=== PATIENT | female | born 1955 | race Caucasian/White ===

== ENCOUNTER 2024-04-11 08:17 | Outpatient (REF) | payer MEDICARE, OTHER, SELFPAY ==
--- NOTE | ~2024-04-11 | XR_ITS ---
EXAMINATION: XR BILATERAL KNEES CLINICAL INFORMATION: Bilateral knee pain. TECHNIQUE: 3 views of each knee. FINDINGS: RIGHT KNEE: Diffuse demineralization. Chondrocalcinosis lateral compartment. Advanced degenerative changes with narrowing and hypertrophic change in the medial and patellofemoral compartments. Joint effusion. LEFT KNEE: Diffuse demineralization. Severe narrowing of the medial compartment with medial marginal osteophytes. Chondrocalcinosis in the lateral compartment. Small joint effusion. Advanced degenerative changes with narrowing and hypertrophic change in the patellofemoral compartment. XR/XR knee LT 3V IMPRESSION: Advanced degenerative changes bilateral knees.
--- NOTE | ~2024-04-11 | XR_ITS ---
EXAMINATION: XR BILATERAL KNEES CLINICAL INFORMATION: Bilateral knee pain. TECHNIQUE: 3 views of each knee. FINDINGS: RIGHT KNEE: Diffuse demineralization. Chondrocalcinosis lateral compartment. Advanced degenerative changes with narrowing and hypertrophic change in the medial and patellofemoral compartments. Joint effusion. LEFT KNEE: Diffuse demineralization. Severe narrowing of the medial compartment with medial marginal osteophytes. Chondrocalcinosis in the lateral compartment. Small joint effusion. Advanced degenerative changes with narrowing and hypertrophic change in the patellofemoral compartment. XR/XR knee RT 3V IMPRESSION: Advanced degenerative changes bilateral knees.
== END 2024-04-11 08:18 | disposition home or self-care (01) ==
LOC: HO.HOSX 08:17
PROVIDERS: Visit Provider Orthopaedic Surgery
DX: M17.0 Bilateral primary osteoarthritis of knee (principal); M25.561 Pain in right knee; M25.562 Pain in left knee
CPT/HCPCS: 73562

== ENCOUNTER 2024-04-11 09:40 | Outpatient (AMB) | payer MEDICARE, OTHER, SELFPAY ==
--- NOTE | 2024-04-11 10:02 | A.OFFVIS_ITS ---
Vital Signs 04/11/24 10:03 Height 5 ft 5 in Weight 137 lb BMI 22.8 Intake Visit Reasons: Right shoulder pain, Bilateral knee pain Intake Note: Abby is a 68 year old female who presents with complaints of progressively worsening right shoulder pain and weakness as well as bilateral knee pains. The patient states that she injured her right shoulder several years ago while lifting a heavy object. She states that she had an MRI at that time which showed a tendon tear?. She states that she was scheduled to undergo right shoulder surgery at that time but changed her mind. She describes her knee pains as sharp in nature. She has had multiple cortisone injections in the past. The most recent injection gave her minimal relief. She has not had a viscosupplementation injection. She has failed the last 3 months of a home exercise program, oral and topical anti-inflammatory medicines as well as Tylenol. The patient states that her knee pains are now interfering with her activities of daily living and her ability to sleep well through the night. She wishes to hold off on total knee replacement surgery for as long as possible. She states that at this point her left knee pain is more severe than is her right. She reports difficulty lifting her right hand above shoulder height. Allergies gabapentin Allergy (Unknown, Verified 04/11/24 10:06) Unknown Clindamycin HCl Allergy (Unknown, Uncoded 04/11/24 10:06) Rash [facility] Surgical History (Updated 04/11/24 @ 10:07 by Jeannine Payne [facility]) Hx of lumbosacral spine surgery History of hip surgery History of shoulder surgery History of hernia repair History of eye surgery Physical Exam Vital Signs: BMI result Body Mass Index 22.8 Const Other: Well-nourished well-developed very friendly female awake alert and oriented x3 in no acute distress Extrem Other: Bilateral upper extremity examination shows good capillary refill, no skin lesions noted, normal sensation light touch Right shoulder examination shows decreased range of motion when compared to her left shoulder, 4/5 strength with supraspinatus testing, positive impingement signs, tenderness over her acromioclavicular joint, no instability Bilateral knee examination shows minimal effusions, palpable crepitus with range of motion, pain with range of motion, no instability Results Reviewed Results Reviewed: X-rays of the patient's bilateral knees show joint space narrowing, subchondral sclerosis, no acute bony abnormalities Assessment & Plan Assessment & Plan (1) Right shoulder pain: Code(s): M25.511 - Pain in right shoulder Category: Medical (2) Pain in both knees: Code(s): M25.561 - Pain in right knee; M25.562 - Pain in left knee (3) Osteoarthritis of left knee: Code(s): M17.12 - Unilateral primary osteoarthritis, left knee Category: Medical (4) Osteoarthritis of right knee: Code(s): M17.11 - Unilateral primary osteoarthritis, right knee Category: Medical Plan Ms. Bright presents with progressively worsening right shoulder pain and weakness most likely due to a full-thickness rotator cuff tear. Thus, I will send the patient for an MRI of her right shoulder for further evaluation. I will see her back once the MRI is completed to discuss the findings and treatment options. The patient also has bilateral knee pains due to osteoarthritis. She wishes to hold off on surgery for as long as possible. I agree with this plan. She has not gotten good relief from cortisone injections in the past. Thus, I will see whether or not the patient's insurance company will cover a viscosupplementation injection, such as Durolane, for both of her knees. I will see her back once t he injections are available. Feel free to call me at any time should questions regarding her orthopedic management arise. I spent 20 minutes in reviewing the patient's records and imaging studies, s eeing the patient and documenting in the medical record. Orders: Orders XR knee LT 3V 04/11/24 M25.562 - Pain in left knee MR shoulder RT wo con 04/11/24 M25.511 - Pain in right shoulder XR knee RT 3V 04/11/24 M25.561 - Pain in right knee Coding Level of Care Code Est Pt Level 3 (97557) Diagnoses Right shoulder pain M25.511 Pain in both knees M25.561; M25.562 Osteoarthritis of left knee M17.12 Osteoarthritis of right knee M17.11
[2024-04-11 10:03] VITALS: BMI 22.8
== END 2024-04-11 10:27 | disposition home or self-care (01) ==
PROVIDERS: PCP Internal Medicine; Visit Provider Orthopaedic Surgery
DX: M25.511 Pain in right shoulder (principal); M25.561 Pain in right knee; M25.562 Pain in left knee; M17.0 Bilateral primary osteoarthritis of knee
CPT/HCPCS: 99213

== ENCOUNTER 2024-05-17 11:15 | Outpatient (AMB) | payer MEDICARE, OTHER, MEDICAID, SELFPAY ==
--- NOTE | 2024-05-17 11:28 | MHC.OFFVIS ---
Intake Visit Reasons: Bilateral knee pain Intake Note: Abby is a 69 year old female who presents with complaints of progressively worsening bilateral knee pains. The patient describes her pains as sharp in nature. Her pains have gotten worse over the last few years in spite of continued non operative treatments. She has tried Tylenol and anti-inflammatory medicines which gave her minimal relief. She has had cortisone injections in the past which gave her temporary relief. She wishes to hold off on surgery for as long as possible. Allergies gabapentin Allergy (Unknown, Verified 05/17/24 11:36) Unknown Clindamycin HCl Allergy (Unknown, Uncoded 05/17/24 11:36) Rash Medication List - Last Reconciled 05/17/24 by Jose Carlos Watson MD No Known Home Meds [facility] Surgical History Hx of lumbosacral spine surgery History of hip surgery History of shoulder surgery History of hernia repair History of eye surgery Physical Exam Const Other: Well-nourished well-developed very friendly female awake alert and oriented x3 in no acute distress Extrem Other: Bilateral lower extremity examination shows good capillary refill, no skin lesions noted, normal sensation light touch Bilateral knee examination shows minimal effusions, palpable crepitus with range of motion, pain with range of motion, range of motion from -3 degrees to 115 degrees, no instability Office Procedures Joint Injection/Aspiration Joint Injection/Aspiration Primary Site: left knee Prep: site was prepped using aseptic technique Injected: 40 mg of, DepoMedrol and 1% plain lidocaine Procedure: The patient tolerated the procedure well Coding 18737 - Large joint Procedure code (CPT) selection complete Joint Injection/Aspiration Joint Injection/Aspiration Primary Site: right knee Prep: site was prepped using aseptic technique Injected: 40 mg of, DepoMedrol and 1% plain lidocaine Procedure: The patient tolerated the procedure well Coding 65270 - Large joint Procedure code (CPT) selection complete Results Reviewed Results Reviewed: X-rays of the patient's bilateral knees taken previously show joint space narrowing, subchondral sclerosis, no acute bony abnormalities Assessment & Plan Assessment & Plan (1) Osteoarthritis of left knee: Code(s): M17.12 - Unilateral primary osteoarthritis, left knee Category: Medical (2) Osteoarthritis of right knee: Code(s): M17.11 - Unilateral primary osteoarthritis, right knee Category: Medical (3) Pain in both knees: Code(s): M25.561 - Pain in right knee; M25.562 - Pain in left knee Plan Ms. Bright presents with bilateral knee pains due to degenerative joint disease. I had a lengthy discussion with the patient regarding the treatment options. She wishes to hold off on total knee replacement surgery for as long as possible. I agree with this plan. The risks and benefits of bilateral knee cortisone injections were discussed at length with the patient. The patient wished to proceed. She tolerated the injections well. She will continue with her home exercise program. She will follow up with me on an as-needed basis should her symptoms not plateau at an unacceptable level over the next few months. Feel free to call me at any time should questions regarding her orthopedic management arise. I spent 20 minutes in reviewing the patient's records and imaging studies, seeing the patient and documenting in the medical record. Orders: Orders AMB Joint Injection/Aspiration Today M17.12 - Unilateral primary osteoarthritis, left knee AMB Joint Injection/Aspiration Today M17.11 - Unilateral primary osteoarthritis, right knee Coding Level of Care Code Est Pt Level 3 (77237) Diagnoses Osteoarthritis of left knee M17.12 Osteoarthritis of right knee M17.11 Pain in both knees M25.561; M25.562 CPT Codes Coding - 53250 Large joint: 74272 - Large joint ([id number]) Coding - 04677 Large joint: 52345 - Large joint ([id number])
== END 2024-05-17 12:21 | disposition home or self-care (01) ==
LOC: HO.HOS 11:15
PROVIDERS: PCP Internal Medicine; Visit Provider Orthopaedic Surgery
DX: M17.0 Bilateral primary osteoarthritis of knee (principal)
CPT/HCPCS: 20610; 99213

== ENCOUNTER → 2024-05-17 11:15 | Outpatient (BNVA) | payer MEDICARE, MEDICAID, OTHER, SELFPAY | PROVIDERS: PCP Internal Medicine; Visit Provider Orthopaedic Surgery | DX: M17.0 Bilateral primary osteoarthritis of knee (principal) | CPT/HCPCS: 20610; 99212; J1010 ==

== ENCOUNTER 2024-08-22 13:19 | Outpatient (AMB) | payer MEDICARE, OTHER, SELFPAY ==
--- NOTE | 2024-08-22 13:23 | A.OFFVIS_ITS ---
Vital Signs 08/22/24 13:28 Height 5 ft 3 in Weight 138 lb BMI 24.4 Intake Visit Reasons: Left knee pain Intake Note: Abby is a 69 year old female who presents with complaints of progressively worsening left knee pain. She describes her pain as sharp in nature. She also has intermittent discomfort in her right knee. She states that her right knee discomfort is tolerable to her at this time. She has done physical therapy exercises which aggravated her left knee pain. She has also had cortisone injections which gave her temporary relief. She wishes to hold off on total knee replacement surgery for as long as possible. She has tried Tylenol, anti- inflammatory medicines and muscle relaxants which gave her mild relief. Allergies gabapentin Allergy (Unknown, Verified 08/22/24 13:28) Unknown Clindamycin HCl Allergy (Unknown, Uncoded 08/22/24 13:28) Rash Medication List - Last Reconciled 08/22/24 by Jose Carlos Watson MD albuterol sulfate 90 mcg/actuation inhalation brimonidine 0.2% drps ophthalmic (eye) ibuprofen mg PO tizanidine 2 mg PO TID PFSH Surgical History Hx of lumbosacral spine surgery History of hip surgery History of shoulder surgery History of hernia repair History of eye surgery Physical Exam Vital Signs: BMI result Body Mass Index 24.4 Const Other: Well-nourished well-developed very friendly female awake alert and oriented x3 in no acute distress Extrem Other: Bilateral lower extremity examination shows good capillary refill, no skin lesions noted, normal sensation light touch Left knee examination shows a minimal effusion, palpable crepitus with range of motion, pain with range of motion, no instability Office Procedures AMB Joint Injection/Aspiration Joint Injection/Aspiration Primary Site: left knee Prep: site was prepped using aseptic technique Injected: 40 mg of, Kenalog and 1% plain lidocaine Procedure: The patient tolerated the procedure well Coding 37032 - Large joint Procedure code (CPT) selection complete Results Reviewed Results Reviewed: X-rays of the patient's left knee show joint space narrowing, subchondral sclerosis, no acute bony abnormalities Assessment & Plan Assessment & Plan (1) Osteoarthritis of left knee: Code(s): M17.12 - Unilateral primary osteoarthritis, left knee Category: Medical (2) Left knee pain: Code(s): M25.562 - Pain in left knee Category: Medical Plan Ms. Bright presents with left knee pain due to degenerative joint disease. I had a lengthy discussion with the patient regarding the treatment options. The risks and benefits of a left knee cortisone injection were discussed at length with the patient. The patient wished to proceed. She tolerated the injection well. She will continue with her activity modifications. She will contact me prior to her follow-up appointment in 3 months should any questions or concerns arise. Feel free to call me at any time should questions regarding her orthopedic management arise. I spent 21 minutes in reviewing the patient's records and imaging studies, seeing the patient and documenting in the medical record. Orders: Orders AMB Joint Injection/Aspiration Today M17.12 - Unilateral primary osteoarthritis, left knee Coding Level of Care Code Est Pt Level 3 (35889) Complex EM visit Add On G2211 Diagnoses Osteoarthritis of left knee M17.12 Left knee pain M25.562 CPT Codes Coding - 05359 Large joint: 72881 - Large joint ([id number])
[2024-08-22 13:28] VITALS: BMI 24.4
== END 2024-08-22 13:53 | disposition home or self-care (01) ==
PROVIDERS: PCP Internal Medicine; Visit Provider Orthopaedic Surgery
DX: M17.12 Unilateral primary osteoarthritis, left knee (principal)
CPT/HCPCS: 20610; 99213

== ENCOUNTER → 2024-08-22 13:19 | Outpatient (BNVA) | payer MEDICARE, OTHER, SELFPAY | PROVIDERS: PCP Internal Medicine; Visit Provider Orthopaedic Surgery | DX: M17.12 Unilateral primary osteoarthritis, left knee (principal); M25.562 Pain in left knee | CPT/HCPCS: 20610; 99212; J2003; J3301 ==

== ENCOUNTER 2024-11-22 14:15 | Outpatient (AMB) | payer MEDICARE, OTHER, SELFPAY ==
[2024-11-22 14:23] VITALS: BMI 24.4
--- NOTE | 2024-11-22 14:23 | A.OFFVIS_ITS ---
Vital Signs 11/22/24 14:23 Height 5 ft 3 in Weight 138 lb BMI 24.4 Intake Visit Reasons: Left knee pain Intake Note: Abby is a 69 year old female who presents with complaints of progressively worsening bilateral knee pains, left greater than right. She describes her left knee pain as severe and sharp in nature, 10/10. Her left knee pain has gotten worse over the last few years in spite of continued non operative treatments. She has had multiple injections given into her left knee. The most recent injection gave her minimal relief. She has also tried Tylenol and ibuprofen which gave her only mild relief. She has done physical therapy exercises which aggravated her pain. The patient has difficulty walking even short distances because of her pain. At this point the patient's left knee pain is interfering with her activities of daily living and her ability to sleep well through the night. The patient states that she does have a family history of vascular problems . She would like to be seen by a vascular specialist prior to proceeding with left total knee replacement surgery. Allergies gabapentin Allergy (Unknown, Verified 11/22/24 14:24) Unknown Clindamycin HCl Allergy (Unknown, Uncoded 11/22/24 14:24) Rash Medication List - Last Reconciled 11/22/24 by Jose Carlos Watson MD albuterol sulfate 90 mcg/actuation inhalation brimonidine 0.2% drps ophthalmic (eye) ibuprofen mg PO tizanidine 2 mg PO TID PFSH Surgical History Hx of lumbosacral spine surgery History of hip surgery History of shoulder surgery History of hernia repair History of eye surgery Physical Exam Vital Signs: BMI result Body Mass Index 24.4 Const Other: Well-nourished well-developed very friendly female awake alert and oriented x3 in no acute distress Extrem Other: Bilateral lower extremity examination shows good capillary refill, no skin lesions noted, normal sensation light touch left knee examination shows a minimal effusion, palpable crepitus with range of motion, pain with range of motion, range of motion from -3 degrees to 115 degrees, no instability Results Reviewed Results Reviewed: x-rays of the patient's left knee taken previously show end-stage degenerative joint disease with grade 4 [id number] arthritis in the medial compartment, subchondral sclerosis, osteophyte formation, no acute bony abnormalities Assessment & Plan Assessment & Plan (1) Osteoarthritis of left knee: Code(s): M17.12 - Unilateral primary osteoarthritis, left knee Category: Medical Plan Ms. Bright presents with progressively worsening left knee pain due to end- stage degenerative joint disease. I had a lengthy discussion with the patient regarding the treatment options. At this point she appears to be failing continued non operative treatments. The risks and benefits of left total knee replacement surgery were discussed at length with the patient. The patient is interested in proceeding with surgery later this year. Because of the patient's reported family history of vascular problems I will arrange for her to be evaluated in our vascular department here at [facility] as part of a preoperative evaluation. I will see her back following that appointment. Feel free to call me at any time should questions regarding her orthopedic management arise. I spent 22 minutes in reviewing the patient's records and imaging studies, seeing the patient and documenting in the medical record. Orders: Referrals Vascular Surgery Referral Z01.818 - Encounter for other preprocedural examination Medications: New oxycodone Partial Fill upon patient request. 5 mg PO Q24H PRN 30 tabs 0RF pain Coding Level of Care Code Est Pt Level 3 (45108) Complex EM visit Add On G2211 Diagnoses Osteoarthritis of left knee M17.12
--- OUTSIDE RECORDS SUMMARY | 2024-11-22 17:31 | XMS_ITS | Clinical Summary ---
Author Organization [facility] Address [address] [place] [address] Care Team Providers Care Teachers Aide Name Role Phone Tawanna Cabrera MD Primary Care Pr ovider Allergies Active Allergy Reactions Criticality Noted Date Comments Clindamycin Unknown/Patient and Family Unable to Define Medium 10/30/2020 Medications Medication Sig Dispensed Refills Start Date End Date Status ibuprofen (MOTRIN) 800 mg tablet Take 800 mg by mouth 4 times daily (every 6 hours) as needed for mild pain. Active tiZANidine (ZANAFLEX) 2 MG tablet Take 2 mg by mouth nightly as needed for muscle spasms. Active mirabegron (MYRBETRIQ) 50 mg ER tablet Take 50 mg by mouth daily. Active ketorolac (ACULAR) 0.5 % ophthalmic solution Administer 1 drop into the left eye 3 (three) times a day. Active albuterol (PROAIR RESPICLICK) 108 (90 Base) MCG/ACT inhaler Inhale 1 puff 4 times daily (every 6 hours) as needed for wheezing. Active fluticasone-salmeter ol (Advair Diskus) 500-50 mcg/inh diskus inhaler Inhale 1 puff 2 (two) times a day. Active Social History Tobacco Use Types Packs/Day Years Used Date Smoking Tobacco: Never Smokeless Tobacco: Never Alcohol Use Standard Drinks/Week Comments Not Currently 0 (1 standard drink = 0.6 oz pur e alcohol) Sex and Gender Information Value Date Recorded Sex Assigned at Not on file Gender Identity Not on file Sexual Orientation Not on file Last Filed Vital Signs Vital Sign Reading Time Taken Comments Blood Pressure 132/80 11/04/2020 12:15 PM EST Pulse 80 11/04/2020 12:22 PM EST Temperature 35.6 ??C (96.1 ??F) 11/04/2020 12:[address] Respiratory Rate 16 11/04/2020 12:22 PM EST Oxygen Saturation 99% 11/04/2020 12:22 PM EST Inhaled Oxygen Concentration - - Weight 63.5 kg (140 lb) 11/01/2020 5:45 PM EST Height 162.6 cm (5' 4 ) 11/01/2020 5:45 PM EST Body Mass Index 24.03 11/01/2020 5:45 PM EST Plan of Treatment Health Maintenance Due Date Last Done Comments Hepatitis C Virus Screening 1955 DTaP/Tdap/Td Vaccines (1 - Tdap) 1972 Mammogram 1993 Colonoscopy 1998 Pneumococcal Vaccines 50+ (1 of 1 - PCV) 2003 Zoster (Shingles) Vaccine (1 of 2) 2003 DXA Bone Density (Females,Ag es 65 and older) 2018 Influenza Vaccine 04/27/2024 COVID-19 Vaccine ( - 2023-2 5 season) 2024 RSV Vaccine 60 years and old er and Patients (1 - 1-dose 75+ series) 2028 Hepatitis B Vaccines Aged Out No long er eligible based on patient's age to complete this topic Advance Directives * Full Code (Latest Code Status on File) Date Activated Date Inactivated Comments 11/04/2020 9:03 AM Care Teams Teachers Aide Relationship Specialty Start Date End Date Tawanna Cabrera MD [address] [place] [id number] PCP - General Internal Medicine 11/04/20
--- OUTSIDE RECORDS SUMMARY | 2024-11-22 17:31 | XMS_ITS | Encounter Summary ---
Author Organization [facility] Address [address] [place] [id number] Care Team Providers Care Electronic Service Technician Name Role Phone Tawanna Cabrera MD Primary Care Pr ovider Encounter Details Date Type Department Care Team (Late st Contact Info) Description 10/30/2020 Prep for Surgery [facility] Felix Monroe MD [address] [place] [id number] Social History Tobacco Use Types Packs/Day Years Used Date Smoking Tobacco: Never Assessed Sex and Gender Information Value Date Recorded Sex Assigned at Not on file Gender Identity Not on file Sexual Orientation Not on file COVID-19 Exposure Response Date Recorded In the last month, have you been in contact with someone who was confirmed or suspected to have Coronavirus / COVID-19? No / Unsure 11/01/2020 5:48 PM EST documented as of this encounter Plan of Treatment Not on file documented as of this encounter Visit Diagnoses Not on filedocumented in this encounter Care Teams Electronic Service Technician Relationship Specialty Start Date End Date Tawanna Cabrera MD [address] [place] [address] [place] [id number] PCP - General Internal Medicine 11/04/20 documented as of this encounter
--- OUTSIDE RECORDS SUMMARY | 2024-11-22 17:31 | XMS_ITS | Clinical Summary ---
Author Organization [facility] 230 [facility] Address 230 [facility] [place] [address] Phone Care Team Providers Care Plastic Sheeting Cutter Name Role Phone Tawanna Cabrera MD Primary Care Prov ider Allergies Active Allergy Reactions Criticality Noted Date Comments Clindamycin Hcl Nausea And Vomiting 11/06/2011 Medications acetaminophen (TYLENOL) 500 mg tablet Take 1 Tablet by mouth every 6 hours as needed. Active brimonidine (ALPHAGAN) 0.2 % ophthalmic solution INSTILL 1 DROP INTO RIGHT EYE 3 TIMES A DAY 4 Active fluticasone propion-salmete roL (ADVAIR DISKUS) 500-50 mcg/dose diskus inhaler Inhale 1 Puff into the lungs 2 times daily. 3 Active gabapentin (NEURONTIN) 100 mg capsule Take 1 Capsule by mouth at bedtime. 4 Active ibuprofen (ADVIL,MOTRIN) 800 mg tablet Take 1 Tablet by mouth every 8 hours as needed for Pain. 4 Active nystatin (MYCOSTATIN) 100,000 unit/mL suspension Take 4-6 mL by mouth 4 times daily for 10 days. Swish and swallow 3 Active albuterol HFA (PROAIR HFA ; PROVENTIL HFA ; VENTOLIN HFA) 90 mcg/actuation inhaler INHALE 2 PUFFS INTO THE LUNGS 4 TIMES DAILY NEEDED FOR COUGH, WHEEZING OR SHORTNESS OF BREATH. 25.5 g 5 Active tiZANidine (ZANAFLEX) 2 mg tablet Take 1 tablet (2 mg total) by mouth every 8 (eight) hours if needed for muscle spasms. 30 tablet 5 5 Active Active Problems Problem Noted Date Diagnosed Date Chronic low back pain without sciatica 2 Hyperlipemia 08/14/2022 Overview (07/13/2024): ASCVD risk 5.2% 07/2022 Overactive bladder 02/25/2021 Compression fracture of first lumbar vertebra wi th nonunion 12/28/2018 Cystitis, interstitial 09/01/2018 Hematuria 03/17/2018 Overview (07/13/2024): Cystoscopy with Dr. Carson . Awaiting report Actinic keratosis 12/20/2014 Overview (07/13/2024): Actinic keratosis 12/09 right cheek Varicose vein of leg 07/31/2009 Overview (07/13/2024): Dr. Alvarado. Rotator cuff injury 11/08/2008 Asthma 10/11/2008 Overview (07/13/2024): Since age 36. Immunizations Name Administration Dates Next Due Pneumococcal conjugate 13 va lent (Prevnar 13, PCV13) 2mo and older 07/29/2020 Pneumococcal polysaccharide 23 valent (Pneumovax 23) 2yo and older 08/14/2022 Td Tetanus diptheria (Tdvax) 7yo and older 10/07 Tdap Tetanus diptheria acell ular pertussis (Boostrix; Adacel) 7yo and older 02/28/2013 Surgical History Surgery Date Site/Laterality Comments BACK SURGERY november 2004 PROCEDURE: HISTORICAL BACK SURGERY HERNIA REPAIR jun PROCEDURE: HISTORICAL HERNIA REPAIR/ING OTHER SURGICAL HISTORY PROCEDURE: [place] OPTX FEM SHFT FX W/PLATE/SCREWS W/WO CERCLAGE; COMMENT: Dr Renteria ([facility]) Medical History Medical History Date Comments Asthma since age 36 DX:Asthma Lumbar disc disease 1994 DX:Lumbar di sc disease Varicose vein of leg DX:Varicose vein of leg Actinic keratosis 12/20/2014 DX:Actinic ker atosis Cystitis, interstitial 09/01/2018 DX:Cystit is, interstitial Cystitis, interstitial 09/01/2018 DX:Cystit is, interstitial Cystitis, interstitial 09/01/2018 DX:Cystit is, interstitial Family History Medical History Relation Name Comments Lung cancer Father Asthma Mother Relation Name Status Comments Father Mother Social History Tobacco Use Types Packs/Day Years Used Date Smoking Tobacco: Never Smokeless Tobacco: Never Alcohol Use Standard Drinks/Week Comments Yes 1.7 (1 standard drink = 0.6 oz p ure alcohol) Comments Unknown Sex and Gender Information Value Date Recorded Sex Assigned at Not on file Legal Sex Female 6:50 AM EST Gender Identity Not on file Sexual Orientation Not on file Obstetrics History Last Filed Vital Signs Vital Sign Reading Time Taken Comments Blood Pressure 92/48 2024 3:18 PM EDT Pulse 87 2024 3:18 PM EDT Temperature - - Respiratory Rate - - Oxygen Saturation - - Inhaled Oxygen Concentration - - Weight 61.7 kg (136 lb) 2024 3:18 PM EDT Height 160 cm (5' 3 ) 2024 3:18 PM EDT Body Mass Index 24.09 2024 3:18 PM EDT Plan of Treatment Upcoming Encounters Date Type Department Care Team (Late st Contact Info) Description 12/22/2024 1:15 PM EDT Office Visit Adult Medicine [facility] [address] [place] [address] Tawanna Cabrera MD [address] [place] [address] Health Maintenance Due Date Last Done Comments Breast Cancer Screening 1955 COVID-19 Vaccine (#1) 1958 Zoster Vaccines (1 of 2) 1972 RSV Immunization Patients 60 + Years Old (1 - Risk 60-74 years 1-dose series) 2013 Falls Risk Assessment 09/03/2022 Osteoporosis Screening (Bone Density Screening) 09/03/2022 Social Influencers of Health Screening 09/03/2022 DTaP,Tdap,and Td Vaccines (3 - Td or Tdap) 02/28/2023 02/28/2013, 10/07/2006 Influenza Vaccine (#1) 2024 Depression Screening 02/27/2025 02/28/2024 Medicare Annual Wellness Visit 02/27/2025 02/28/2024 Colorectal Cancer Screening: Colonoscopy 03/16/2028 03/16/2018 Cholesterol Screening (Lipid Panel) 03/21/2029 03/21/2024, 03/21/2024 Hepatitis C Screening Completed 03/16/2018 Pneumococcal Vaccine: 50+ Years Completed 08/14/2022, 07/29/2020 HIB Vaccines Aged Out No longer eligi ble based on patient's age to complete this topic HPV Vaccines Aged Out No longer eligi ble based on patient's age to complete this topic Hepatitis A Vaccines Aged Out No long er eligible based on patient's age to complete this topic Hepatitis B Vaccines Aged Out No long er eligible based on patient's age to complete this topic IPV Vaccines Aged Out No longer eligi ble based on patient's age to complete this topic MMR Vaccines Aged Out No longer eligi ble based on patient's age to complete this topic Meningococcal ACWY Vaccine Aged Out N o longer eligible based on patient's age to complete this topic Meningococcal B Vacine Aged Out No lo nger eligible based on patient's age to complete this topic RSV Immunization Patients Under 20 months Aged Out No longer eligible b ased on patient's age to complete this topic Varicella Vaccines Aged Out No longer eligible based on patient's age to complete this topic Procedures Procedure Name Priority Date/Time Associated Diagnosis Comments LIPID PANEL Routine 03/21/2024 DEPRESSION SCREENING Routine 02/28/2024 HEPATITIS C SCREENING Routine 03/16/2018 COLONOSCOPY Routine 03/16/2018 from Last 3 Months or Most Recently Relevant to Health Maintenance Results * (ABNORMAL) Lipid panel (03/21/2024) LDL/HDL Ratio 3 0 - 4 Triglycerides 73 0 - 150 mg/dL Cholesterol 231(A) 0 - 200 mg/dL HDL 72 >=40 mg/dL LDL Cholesterol 145(A) 0 - 100 mg/dL Blood Venous blood specimen / Unknown Historical Provider LAB BLOOD ORDERABLES Dee l Result * Depression Screening (02/28/2024) Depression Screening Abstracted Historical Provider HEALTH MAINTENANCE Final Result * Hepatitis C Screening (03/16/2018) [facility] Hepatitis C Screening Abstracted Historical Provider HEALTH MAINTENANCE Final Result * Colonoscopy (03/16/2018) [facility] Colonoscopy Abstracted, No interpretation Anatomical Region Laterality Modality Other [facility] Provider HEALTH MAINTENANCE Final Result from Last 3 Months or Most Recently Relevant to Health Maintenance Insurance MEDICARE MEDICAID - [place] Care Teams Plastic Sheeting Cutter Relationship Specialty Start Date End Date Tawanna Cabrera MD [address] [place] [id number] PCP - General Internal Medicine 08/09/20
== END 2024-11-22 14:57 | disposition home or self-care (01) ==
PROVIDERS: PCP Internal Medicine; Visit Provider Orthopaedic Surgery
DX: M17.12 Unilateral primary osteoarthritis, left knee (principal)
CPT/HCPCS: 99213; G2211

== ENCOUNTER → 2024-11-22 14:15 | Outpatient (BNVA) | payer MEDICARE, OTHER, SELFPAY | PROVIDERS: PCP Internal Medicine; Visit Provider Orthopaedic Surgery | DX: M17.12 Unilateral primary osteoarthritis, left knee (principal) | CPT/HCPCS: 99212 ==

== ENCOUNTER 2024-11-28 13:14 | Outpatient (AMB) | payer MEDICARE, OTHER, SELFPAY ==
--- NOTE | 2024-11-28 13:37 | A.OFFVIS_ITS ---
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 Pt states that pain is worse at night. Pt states that both are equally bothersome. Pt states restlessness at night. Accompanied by: Self / Same As Patient Allergies gabapentin Allergy (Unknown, Verified 11/28/24 13:43) Unknown Clindamycin HCl Allergy (Unknown, Uncoded 11/28/24 13:43) Rash HPI HPI ROUTE RETURNER/Ortho Referral for VV: Details: Pleasant 69-year-old female patient presents for painful varicose veins. Complaints include pain over varicosities, swelling of lower extremities, cramping, fatigue, and heaviness of the lower extremities. 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 It is noted more so in right leg. Patient denies any previous venous surgery or injections. There is a history of osteoarthritis, specifically affecting the left knee, resulting in ineffective outcomes from cortisone injections and contemplation of future surgical interventions. The patient's medical history is notable for fibromyalgia and asthma. A lack of smoking history is present alongside a family history of aneurysms and vascular abnormalities, relevant in the context of her venous insufficiency. She manages knee pain with a reduced dosage of prescribed medication, maintaining vigilance against potential dependency given a familial history of drug use. Patient denies any history of DVT/ PE. Patient denies any history of phlebitis. Trial of compression includes - [id number] They now present for vascular evaluation regarding their varicose veins. [facility] Surgical History Hx of lumbosacral spine surgery History of hip surgery History of shoulder surgery History of hernia repair History of eye surgery Review of Systems Const Reports as per HPI ENT Reports no additional complaints Card Denies chest pain, Denies chest pain at rest and Denies chest pain with activity Resp Denies chest congestion and Denies cough GI Reports no additional complaints Musc Details: pain over varicosities, aching of lower extremities, swelling, cramping, heaviness and tiredness, itching Denies abnormal gait Skin/Breast Reports pruritus and Denies wounds Neuro Reports no additional complaints and Denies abnormal gait Psych Denies no additional complaints Physical Exam Vital Signs: BMI result Body Mass Index 24.4 Const General: cooperative, healthy appearing and comfortable Orientation/consciousness: oriented to person, oriented to place and oriented to time Neck Carotids: no bruits Chest Chest palpation & inspection: normal inspection of the chest and normal palpation of entire chest wall Resp Effort & Inspection: normal respiratory effort and able to speak in complete sentences Cardio Rate: regular rate Heart sounds: S1 normal heart sound present and S2 normal heart sound present Peripheral pulses: Peripheral pulses 2+ throughout GI Inspection: Yes normal to inspection Skin Other: +2 edema, large rope-like varicosities greater than 4 mm CEAP Classification C4 - skin color changes Ep - Etiology Primary As - superficial veins P - reflux General skin exam: dry skin Neuro General: oriented to person, oriented to place and oriented to time Extrem Right lower extremity: full ROM, normal capillary refill and edema Left lower extremity: full ROM, normal capillary refill and edema Psych Mental Status: mental status grossly normal Assessment & Plan Assessment & Plan (1) Varicose veins of right lower extremity with inflammation: Code(s): I83.11 - Varicose veins of right lower extremity with inflammation Category: Medical Plan: In short, the patient has evidence of venous insufficiency. I have discussed the pathophysiology with the patient. In addition I have provided informational material regarding venous disease to the patient. We have discussed conservative measures including compression, elevation, and exercise. I have also provided a handout regarding appropriate use of compression stockings and where to purchase good compression stockings as well. The issue year is her knee. She is unclear as to whether she wants to proceed with surgery versus conservative measures including further injections regarding her knee. I have taken the liberty of ordering venous insufficiency testing to better give her information regarding this. She will follow up after testing. From an arterial perspective she does have palpable pulses and I am not concerned about that. The patient had an opportunity to ask questions regarding the treatment plan. All questions were answered. Imaging studies, laboratory studies and physical exam results were discussed and reviewed in detail. No major barriers to understanding were identified. The patient expressed understanding and agreement with the above treatment plan. The patient is aware they should contact our office by phone for worsening of the current condition or the appearance of new symptoms. Thank you for allowing me to participate in the vascular care of this patient. If you have any questions or concerns regarding the treatment for the above condition please do not hesitate to contact me. The office telephone contact is [phone]. This note is constructed using voice recognition software. While every effort has been made to ensure accuracy, manufacturing technician errors may have been included. Thank you for allowing me to participate in the care of your patient. Yours sincerely, Blu Ball MD, FACS, R.P.V.I. Orders: Orders US venous duplex LE BI 1 Week I83.11 - Varicose veins of right lower extremity with inflammation Coding Level of Care Code New Pt Level 4 (80775) Diagnoses Varicose veins of right lower extremity with inflammation I83.11
[2024-11-28 13:40] VITALS: BMI 24.4
--- OUTSIDE RECORDS SUMMARY | 2024-11-28 16:33 | XMS_ITS | Clinical Summary ---
Author Organization [facility] 230 [facility] Address 230 [facility] [place] [address] Phone Care Team Providers Care Bond Underwriter Name Role Phone Tawanna Cabrera MD Primary [...] HISTORICAL HERNIA REPAIR/ING OTHER SURGICAL HISTORY PROCEDURE: [place] OPTX FEM SHFT FX W/PLATE/SCREWS W/WO CERCLAGE; COMMENT: Dr Renteria ([facility]) Medical History Medical History Date Comments [...] 1:15 PM EDT Office Visit Adult Medicine [facility] [address] [place] [address] Tawanna Cabrera MD [address] [place] [address] Health Maintenance Due Date Last Done Comments [...] Result * Hepatitis C Screening (03/16/2018) Pathologist [facility] Hepatitis C Screening Abstracted Historical Provider HEALTH MAINTENANCE Final Result * Colonoscopy (03/16/2018) Pathologist [facility] Colonoscopy Abstracted, No interpretation Anatomical Region Laterality Modality Other [facility] Provider HEALTH MAINTENANCE Final Result from Last 3 Months or Most Recently Relevant to Health Maintenance Insurance MEDICARE MEDICAID - [place] Care Teams Bond Underwriter Relationship Specialty Start Date End Date Tawanna Cabrera MD [address] [place] [phone] PCP - General Internal Medicine 08/09/20
--- OUTSIDE RECORDS SUMMARY | 2024-11-28 16:33 | XMS_ITS | Encounter Summary ---
Author Organization [facility] Address [address] [place] [address] Care Team Providers Care Film Reproducer Name Role Phone Tawanna Cabrera MD Primary Care Pr ovider Encounter Details Date Type Department Care Team (Late st Contact Info) Description 10/30/2020 Prep for Surgery [facility] Felix Monroe MD [address] [place] [phone] Social History Tobacco Use Types Packs/Day Years [...] on filedocumented in this encounter Care Teams Film Reproducer Relationship Specialty Start Date End Date Tawanna Cabrera MD [address] [place] [address] [place] [id number] PCP - General Internal Medicine 11/04/20 documented as of this encounter
--- OUTSIDE RECORDS SUMMARY | 2024-11-28 16:33 | XMS_ITS | Clinical Summary ---
Author Organization [facility] Address [address] [place] [address] Care Team Providers Care Director Data Management Name Role Phone Tawanna Cabrera MD Primary [...] Inactivated Comments 11/04/2020 9:03 AM Care Teams Director Data Management Relationship Specialty Start Date End Date Tawanna Cabrera MD [address] [place] [phone] PCP - General Internal Medicine 11/04/20
== END 2024-11-28 14:12 | disposition home or self-care (01) ==
PROVIDERS: PCP Internal Medicine; Visit Provider Surgery Vascular Surgery
DX: I83.11 Varicose veins of right lower extremity with inflammation (principal)
CPT/HCPCS: 99204

== ENCOUNTER → 2024-11-28 13:14 | Outpatient (BNVA) | payer MEDICARE, OTHER, SELFPAY | PROVIDERS: PCP Internal Medicine; Visit Provider Surgery Vascular Surgery | DX: I83.11 Varicose veins of right lower extremity with inflammation (principal) | CPT/HCPCS: 99202 ==

== ENCOUNTER 2025-01-05 10:53 | Outpatient (REF) | payer OTHER, MEDICARE, SELFPAY ==
--- NOTE | ~2025-01-05 | US_ITS ---
EXAMINATION: US LOWER EXTREMITY VENOUS (REFLUX EXAM), BILATERAL CLINICAL INFORMATION: Varicose veins of right lower extremity with inflammation. COMPARISON: None. TECHNIQUE: Color flow triplex imaging and compression Doppler was performed to evaluate both the deep and the superficial systems bilaterally. To evaluate the superficial system, the examination was performed in the upright position. Color-flow Doppler ultrasound and compression ultrasound were utilized. In addition, maneuvers were utilized to demonstrate reflux. FINDINGS: 1. DEEP VENOUS ULTRASOUND OF THE RIGHT LOWER EXTREMITY: Common Femoral Vein: Compressible, normal respiratory variation and augmented flow. Femoral Vein: Compressible, normal color flow and augmentation. Popliteal Vein: Compressible, normal augmentation. Deep Reflux: There is no evidence of reflux in the deep system in either the common femoral vein, superficial femoral or the popliteal vein. There is no evidence of a Mendez's cyst. 2. SUPERFICIAL ULTRASOUND WITH DOPPLER OF RIGHT LOWER EXTREMITY: GREAT SAPHENOUS VEIN: Saphenofemoral Junction: 0.6 cm; Reflux: 0 ms Proximal Thigh: 0.5 cm; Reflux: 0 ms Mid Thigh: 0.3 cm; Reflux: 0 ms Distal Thigh: 0.3 cm; Reflux: 0 ms At Knee: 0.3 cm; Reflux: 0 ms Proximal Calf: 0.3 cm; Reflux: 0 ms Mid Calf: 0.2 cm; Reflux: 0 ms Distal Calf: 0.2 cm; Reflux: 0 ms DUPLICATED MEDIAL GREAT SAPHENOUS VEIN: None imaged. DUPLICATED LATERAL GREAT SAPHENOUS VEIN: None imaged. SMALL SAPHENOUS VEIN: Saphenopopliteal Junction: 0.1 cm; Reflux: 0 ms Proximal: 0.1 cm; Reflux: 0 ms Distal: 0.2 cm; Reflux: 0 ms VEIN OF GIACOMINI: None seen. PERFORATORS: Location: Superficial saphenous vein distally. Size: 0.2 cm Reflux: None. VARICOSITIES: Greater saphenous vein proximal thigh, 0.5 cm, 2484 ms reflux. Right distal anteriorly, 0.4 cm, 1916 ms reflux. Greater saphenous vein and midcalf, 0.3 cm, 2672 ms reflux 3. DEEP VENOUS ULTRASOUND OF THE LEFT LOWER EXTREMITY: Common Femoral Vein: Compressible, normal respiratory variation and augmented flow. Femoral Vein: Compressible, normal color flow and augmentation. Popliteal Vein: Compressible, normal augmentation. Deep Reflux: There is 2068 ms of reflux in the left popliteal vein. There is no evidence of reflux in the other deep system in either the common femoral or superficial femoral veins. There is no evidence of a Mendez's cyst. 4. SUPERFICIAL ULTRASOUND WITH DOPPLER OF LEFT LOWER EXTREMITY: GREAT SAPHENOUS VEIN: Saphenofemoral Junction: 1.0 cm; Reflux: 2876 ms Proximal Thigh: 0.7 cm; Reflux: 2992 ms Mid Thigh: 0.5 cm; Reflux: 2676 ms Distal Thigh: 0.6 cm; Reflux: 1932 ms At Knee: 0.4 cm; Reflux: 2748 ms Proximal Calf: 0.3 cm; Reflux: 0 ms Mid Calf: 0.2 cm; Reflux: 0 ms Distal Calf: 0.2 cm; Reflux: 592 ms DUPLICATED MEDIAL GREAT SAPHENOUS VEIN: Diameter: None imaged DUPLICATED LATERAL GREAT SAPHENOUS VEIN: Diameter: None imaged. SMALL SAPHENOUS VEIN: Saphenopopliteal Junction: 0.2 cm; Reflux: 2892 ms Proximal: 0.2 cm; Reflux: 0 ms Distal: 0.3 cm; Reflux: 1512 ms VEIN OF GIACOMINI: Not imaged. PERFORATORS: Distal superficial saphenous vein, 0.2 cm, no reflux. 28 cm from the heel, 0.4 cm, 1484 ms reflux. VARICOSITIES: Proximal superficial saphenous vein, 0.4 cm, no reflux. Distal superficial saphenous vein, 0.3 cm, 728 ms reflux. Greater saphenous vein at the knee, 0.5 cm, 1304 ms reflux. Greater saphenous vein and midcalf, 0.3 cm, 1880 ms reflux. Midshin, 0.3 cm, no reflux. Mid mulligan, 0.4 cm, 1404 ms reflux. US/US venous insuf bilat IMPRESSION: RIGHT: 1. There is no DVT. 2. There is no evidence of venous insufficiency or hemodynamically significant reflux. 3. There are varicosities measuring up to 0.5 cm in the greater saphenous vein proximal thigh, mid calf, and right distal anterior region. LEFT: 1. There is no DVT. 2. There is no hemodynamically significant reflux in the popliteal vein. There is extensive hemodynamically significant reflux throughout the greater saphenous vein and small saphenous vein. 3. There are varicosities measuring up to 0.5 cm in the superficial saphenous vein proximally, distally, within the greater saphenous vein at the knee, mid calf, and within the mid mulligan. See above for details. Electronically signed by: Aníbal Mcrae MD 01/05/2025 01:45 PM EDT
--- OUTSIDE RECORDS SUMMARY | 2025-01-05 11:51 | XMS_ITS | Clinical Summary ---
Author Organization [facility] [address] [facility] Address 230 [facility] [place] [address] Phone Care Team Providers Care Press Set Up Person Name Role Phone Tawanna Cabrera MD Primary [...] Capsule by mouth at bedtime. 4 Active nystatin (MYCOSTATIN) 100,000 unit/mL suspension [...] muscle spasms. 30 tablet 5 5 Active ibuprofen (ADVIL,MOTRIN) 800 mg tablet Take 1 tablet (800 mg total) by mouth every 8 (eight) hours if needed for moderate pain. for pain 90 tablet 1 5 Active ibuprofen (ADVIL,MOTRIN) 800 mg tablet Take 1 Tablet by mouth every 8 hours as needed for Pain. 4 12/23/19 25 Discontinu ed(Reorder ) tiZANidine (ZANAFLEX) 2 mg tablet Take 1 tablet (2 mg total) by mouth every 8 (eight) hours if needed for muscle spasms. 30 tablet 5 5 12/23/19 25 Discontinu ed(Reorder ) Active Problems Problem Noted Date Diagnosed Date [...] Asthma 10/11/2008 Overview (07/13/2024): Since age 36. Encounters Date Type Department Care Team Description 12/22/2024 1:15 PM EDT Office Visit Adult Medicine [address] [address] Tawanna Aguilar MD Moderate asthma, unspecified whether complicated, unspecified whether persistent (Primary Dx); Chronic low back pain without sciatica, unspecified back pain laterality; Arthropathy of left knee; Dental caries from Last 3 Months Immunizations Name Administration Dates Next Due Pneumococcal [...] HISTORICAL HERNIA REPAIR/ING OTHER SURGICAL HISTORY PROCEDURE: [place] OPTX FEM SHFT FX W/PLATE/SCREWS W/WO CERCLAGE; COMMENT: Dr Renteria ([facility]) Medical History Medical History Date Comments Asthma [...] Sign Reading Time Taken Comments Blood Pressure 103/47 12/22/2024 1:11 PM EDT Pulse 69 12/22/2024 1:11 PM EDT Temperature 36.8 ??C (98.2 ??F) 12/22/2024 1:11 PM ED T Respiratory Rate - - Oxygen Saturation - - Inhaled Oxygen Concentration - - Weight 64 kg (141 lb) 12/22/2024 1:11 PM EDT Height 160 cm (5' 3 ) 12/22/2024 1:11 PM EDT Body Mass Index 24.98 12/22/2024 1:11 PM EDT Plan of Treatment Upcoming Encounters Date Type Department Care Team (Late st Contact Info) Description 06/25/2025 2:30 PM EDT Office Visit Adult Medicine - [place] [address] [place] [address] Tawanna Cabrera MD [address] [place] [address] Health Maintenance Due Date Last Done Comments Breast Cancer Screening 1955 COVID-19 Vaccine (#1) 1958 Zoster Vaccines (1 of 2) 1972 RSV Immunization Adult Patients (1 - Risk 60-74 years 1-dose series) 2013 Falls Risk Assessment 09/03/2022 Osteoporosis Screening (Bone Density Screening) 09/03/2022 Social Influencers of Health Screening 09/03/2022 DTaP,Tdap,and Td Vaccines (3 - Td or Tdap) 02/28/2023 02/28/2013, 10/07/2006 Depression Screening 02/27/2025 02/28/2024 Medicare Annual Wellness Visit 02/27/2025 02/28/2024 Influenza Vaccine (Season Ended) 2025 Colorectal Cancer Screening: Colonoscopy 03/16/2028 03/16/2018 Cholesterol [...] age to complete this topic Meningococcal B Vaccine Aged Out No l onger eligible based on patient's age to complete [...] Maintenance Results * (ABNORMAL) Lipid panel (03/21/2024) Pathologist [facility] LDL/HDL Ratio 3 0 - 4 Triglycerides 73 0 - 150 mg/dL Cholesterol 231(A) 0 - 200 mg/dL HDL 72 >=40 mg/dL LDL Cholesterol 145(A) 0 - 100 mg/dL Blood Venous blood specimen / Unknown [facility] Provider LAB BLOOD ORDERABLES Dee l Result * Depression Screening (02/28/2024) Pathologist [facility] Depression Screening Abstracted [facility] Provider HEALTH MAINTENANCE Final Result * Hepatitis C Screening (03/16/2018) Pathologist [facility] Hepatitis C Screening Abstracted [facility] Provider HEALTH MAINTENANCE Final Result * Colonoscopy (03/16/2018) Pathologist [facility] Colonoscopy Abstracted, No interpretation Anatomical Region Laterality Modality Other [facility] Provider HEALTH MAINTENANCE Final Result from Last 3 Months or Most Recently Relevant to Health Maintenance Insurance R [place] [id number] MEDICARE MEDICAID - [place] Care Teams Press Set Up Person Relationship Specialty Start Date End Date Tawanna Cabrera MD [address] [place] [address] [place] [address] PCP - General Internal Medicine 08/09/20
--- OUTSIDE RECORDS SUMMARY | 2025-01-05 11:51 | XMS_ITS | Clinical Summary ---
Author Organization [facility] Address [address] [place] [address] Care Team Providers Care Gasser Machine Operator Name Role Phone Tawanna Cabrera MD Primary [...] Inactivated Comments 11/04/2020 9:03 AM Care Teams Gasser Machine Operator Relationship Specialty Start Date End Date Tawanna Cabrera MD PCP - General Internal Medicine 11/04/20
--- OUTSIDE RECORDS SUMMARY | 2025-01-05 11:51 | XMS_ITS | Encounter Summary ---
Author Organization [facility] Address [address] [place] [address] Care Team Providers Care Supervisor Vine Fruit Farming Name Role Phone Tawanna Cabrera MD Primary Care Pr ovider Encounter Details Date Type Department Care Team (Late st Contact Info) Description 10/30/2020 Prep for Surgery [facility] Felix Monroe MD [address] [place] [address] Social History Tobacco Use Types Packs/Day Years [...] on filedocumented in this encounter Care Teams Supervisor [employer] Relationship Specialty Start Date End Date Tawanna Cabrera MD PCP - General Internal Medicine 11/04/20 documented as of this encounter
== END 2025-01-05 10:54 | disposition home or self-care (01) ==
LOC: HO.US 10:53
PROVIDERS: PCP Internal Medicine; Visit Provider Surgery Vascular Surgery
DX: I83.11 Varicose veins of right lower extremity with inflammation (principal)
CPT/HCPCS: 93970

== ENCOUNTER → 2025-01-05 10:56 | Outpatient (BNV) | payer OTHER, MEDICARE, SELFPAY | PROVIDERS: PCP Internal Medicine; Visit Provider Radiology Diagnostic Radiology | DX: I83.91 Asymptomatic varicose veins of right lower extremity (principal) | CPT/HCPCS: 93970 ==

== ENCOUNTER 2025-02-15 13:19 | Outpatient (AMB) | payer OTHER, MEDICARE, SELFPAY ==
--- NOTE | 2025-02-15 13:31 | MHC.OFFVIS ---
Vital Signs 02/15/25 13:34 Height 5 ft 3 in Weight 138 lb BMI 24.4 Intake Visit Reasons: OV LT knee OA follow up Intake Note: Abby is a 69 year old female who presents with complaints of progressively worsening bilateral knee pains, left greater than right. The patient describes her left knee pain as sharp in nature. Her left knee pain has gotten worse over the last few years in spite of continued non operative treatments. She has tried Tylenol and anti-inflammatory medicines which gave her minimal relief. She has also taken oxycodone to help her sleep. The patient has difficulty walking even short distances because of her left knee pain. At this point her left knee pain is interfering with her activities of daily living and her ability to sleep well through the night. The patient states that she recently had 4 teeth extracted and is due to undergo further dental work in the near future. Allergies gabapentin Allergy (Unknown, Verified 02/15/25 14:15) Unknown Clindamycin HCl Allergy (Unknown, Uncoded 02/15/25 14:15) Rash Medication List - Last Reconciled 02/15/25 by Jose Carlos Watson MD albuterol sulfate 90 mcg/actuation inhalation brimonidine 0.2% drps ophthalmic (eye) ibuprofen mg PO neomycin-polymyxin B-dexameth 3.5mg/mL-10,000 unit/mL-0.1 % drps ophthalmic (eye) oxycodone 5 mg PO Q24H PRN tizanidine 2 mg PO TID PFSH Surgical History Hx of lumbosacral spine surgery History of hip surgery History of shoulder surgery History of hernia repair History of eye surgery Physical Exam Vital Signs: BMI result Body Mass Index 24.4 Const Other: Well-nourished well-developed very friendly female awake alert and oriented x3 in no acute distress Extrem Other: Bilateral lower extremity examination shows good capillary refill, no skin lesions noted, normal sensation light touch Left knee examination shows a minimal effusion, palpable crepitus with range of motion, pain with range of motion, range of motion from -3 degrees to 115 degrees, no instability Results Reviewed Results Reviewed: X-rays of the patient's bilateral knees taken previously show severe joint space narrowing with grade 4 [id number] arthritis, subchondral sclerosis, osteophyte formation, no acute bony abnormalities Assessment & Plan Assessment & Plan (1) Osteoarthritis of left knee: Code(s): M17.12 - Unilateral primary osteoarthritis, left knee Category: Medical Plan Ms. Bright presents with progressively worsening bilateral knee pains, left greater than right, due to end-stage degenerative joint disease. I had a lengthy discussion with the patient regarding the treatment options. At this point she has failed non operative treatments. She is interested in proceeding with left total knee replacement surgery once she is cleared by her oral surgeon. She will be scheduled at that time. She will continue with her activity modifications in the meantime. She will follow-up as instructed. Feel free to call me at any time should questions regarding her orthopedic management arise. I spent 20 minutes in reviewing the patient's records and imaging studies, seeing the patient and documenting in the medical record. Medications: New oxycodone Partial Fill upon patient request. 5 mg PO Q24H PRN 30 tabs 0RF pain Refilled oxycodone Partial Fill upon patient request. 5 mg PO Q24H PRN 30 tabs 0RF pain Coding Level of Care Code Est Pt Level 3 (34226) Complex EM visit Add On G2211 Diagnoses Osteoarthritis of left knee M17.12
[2025-02-15 13:34] VITALS: BMI 24.4
== END 2025-02-15 13:50 | disposition home or self-care (01) ==
LOC: HO.HOS 13:20
PROVIDERS: PCP Internal Medicine; Visit Provider Orthopaedic Surgery
DX: M17.12 Unilateral primary osteoarthritis, left knee (principal)
CPT/HCPCS: 99213

== ENCOUNTER → 2025-02-15 13:19 | Outpatient (BNVA) | payer OTHER, MEDICARE, SELFPAY | PROVIDERS: PCP Internal Medicine; Visit Provider Orthopaedic Surgery ==

== ENCOUNTER 2025-02-15 14:08 | Outpatient (AMB) | payer OTHER, MEDICARE, SELFPAY ==
--- NOTE | 2025-02-15 14:11 | MHC.OFFVIS ---
Vital Signs 02/15/25 14:12 Height 5 ft 3 in Weight 138 lb BMI 24.4 Intake Visit Reasons: follow up US Intake Note: follow up US for bilateral LE heaviness, cramping, pain, large VV. Restless legs at night. Accompanied by: Self / Same As Patient Allergies gabapentin Allergy (Unknown, Verified 02/15/25 14:15) Unknown Clindamycin HCl Allergy (Unknown, Uncoded 02/15/25 14:15) Rash HPI HPI follow up US: Details: The patient is a 69-year-old female presenting with venous insufficiency. She reports bilateral large veins, prominent on examination, causing swelling, heaviness, and restless legs primarily exacerbated during inactivity. Her past attempts to manage these symptoms are largely symptomatic. No procedures have been completed for vein treatment yet. Concurrently, she is addressing significant dental issues, involving multiple extractions. This is prioritized prior to undergoing left knee replacement surgery due to risk of post-surgical infection. The patient's joint history includes bilateral knee osteoarthritis, with the left knee being more painful, and a previous repair of a shattered right hip and femur impacting mobility. The patient has central spinal stenosis, limiting work capacity to four hours a day. [facility] Surgical History Hx of lumbosacral spine surgery History of hip surgery History of shoulder surgery History of hernia repair History of eye surgery Review of Systems Const Reports as per HPI ENT Reports no additional complaints Card Denies chest pain, Denies chest pain at rest and Denies chest pain with activity Resp Denies chest congestion and Denies cough GI Reports no additional complaints Musc Details: pain over varicosities, aching of lower extremities, swelling, cramping, heaviness and tiredness, itching Denies abnormal gait Skin/Breast Reports pruritus and Denies wounds Neuro Reports no additional complaints and Denies abnormal gait Psych Denies no additional complaints Physical Exam Vital Signs: BMI result Body Mass Index 24.4 Const General: cooperative, healthy appearing and comfortable Orientation/consciousness: oriented to person, oriented to place and oriented to time Neck Carotids: no bruits Chest Chest palpation & inspection: normal inspection of the chest and normal palpation of entire chest wall Resp Effort & Inspection: normal respiratory effort and able to speak in complete sentences Cardio Rate: regular rate Heart sounds: S1 normal heart sound present and S2 normal heart sound present Peripheral pulses: Peripheral pulses 2+ throughout GI Inspection: Yes normal to inspection Skin Other: +2 edema, large rope-like varicosities greater than 4 mm bilateral calf and thigh left greater than right CEAP Classification C4 - skin color changes Ep - Etiology Primary As - superficial veins P - reflux General skin exam: dry skin Neuro General: oriented to person, oriented to place and oriented to time Extrem Right lower extremity: full ROM, normal capillary refill and edema Left lower extremity: full ROM, normal capillary refill and edema Psych Mental Status: mental status grossly normal Results Reviewed Results Reviewed: Brief summary of venous insufficiency testing is as follows: right great saphenous vein: negative right small saphenous vein: negative right accessory vein: none present left great saphenous vein: Positive left small saphenous vein: Positive left accessory vein: none present Please note there is no evidence of any venous aneurysms or significant tortuosity Assessment & Plan Assessment & Plan (1) Varicose veins of left lower extremity with inflammation: Code(s): I83.12 - Varicose veins of left lower extremity with inflammation Category: Medical Plan: In short patient has significant venous insufficiency of the left lower extremity. At the current time she has multiple issues that she is treating. I do recommend that her dental procedures be completed 1st as they may be a source of infection. Once that is complete she is stable from my perspective to undergo knee replacement. We can address the venous disease after on a more elective basis. I have scheduled her for routine six-month follow-up with us. Thank you for allowing us to assist in her care. If there are any questions or concerns please do not hesitate to contact us Coding Level of Care Code Est Pt Level 4 (11910) Diagnoses Varicose veins of left lower extremity with inflammation I83.12
[2025-02-15 14:12] VITALS: BMI 24.4
== END 2025-02-15 15:43 | disposition home or self-care (01) ==
LOC: HO.HVS 14:09
PROVIDERS: PCP Internal Medicine; Visit Provider Surgery Vascular Surgery
DX: I83.12 Varicose veins of left lower extremity with inflammation (principal)
CPT/HCPCS: 99214

== ENCOUNTER 2025-03-28 14:28 | Outpatient (AMB) | payer MEDICARE, OTHER, SELFPAY ==
[2025-03-28 14:34] VITALS: BMI 24.4
--- NOTE | 2025-03-28 14:34 | MHC.OFFVIS ---
Vital Signs 03/28/25 14:34 Height 5 ft 3 in Weight 138 lb BMI 24.4 Intake Visit Reasons: Left knee pain Intake Note: Abby is a 69 year old female who presents with complaints of progressively worsening left knee pain. She describes her pain as sharp and severe in nature. She is currently undergoing multiple dental procedures so she is not a candidate for total knee replacement surgery right now. She has had cortisone injections in the past. The most recent cortisone injection gave her minimal relief. She has failed the last 3 months of conservative treatment which has included a home exercise program, physical therapy exercises, cortisone injections, Tylenol, ibuprofen and oxycodone. At this point the patient's left knee pain is interfering with her activities of daily living and her ability to sleep well through the night. Allergies gabapentin Allergy (Unknown, Verified 03/28/25 14:34) Unknown Clindamycin HCl Allergy (Unknown, Uncoded 03/28/25 14:34) Rash Medication List - Last Reconciled 03/28/25 by Jose Carlso Watson MD albuterol sulfate 90 mcg/actuation inhalation brimonidine 0.2% drps ophthalmic (eye) ibuprofen mg PO neomycin-polymyxin B-dexameth 3.5mg/mL-10,000 unit/mL-0.1 % drps ophthalmic (eye) oxycodone 5 mg PO Q24H PRN oxycodone 5 mg PO Q24H PRN tizanidine 2 mg PO TID PFSH Surgical History Hx of lumbosacral spine surgery History of hip surgery History of shoulder surgery History of hernia repair History of eye surgery Physical Exam Vital Signs: BMI result Body Mass Index 24.4 Const Other: Well-nourished well-developed very friendly female awake alert and oriented x3 in no acute distress Extrem Other: Left knee examination shows a minimal effusion, palpable crepitus with range of motion, pain with range of motion, no instability Results Reviewed Results Reviewed: X-rays of the patient's left knee show joint space narrowing, subchondral sclerosis, no acute bony abnormalities Assessment & Plan Assessment & Plan (1) Left knee pain: Code(s): M25.562 - Pain in left knee Category: Medical (2) Osteoarthritis of left knee: Code(s): M17.12 - Unilateral primary osteoarthritis, left knee Category: Medical Plan Ms. Bright presents with left knee pain due to osteoarthritis. I had a lengthy discussion with the patient regarding the treatment options. She has not gotten good relief from cortisone injections in the past. Thus, I will see if the patient's insurance company will cover a viscosupplementation injection such as Durolane. I will see her back once the injection is available. Feel free to call me at any time should questions regarding her orthopedic management arise. I spent 21 minutes in reviewing the patient's records and imaging studies, seeing the patient and documenting in the medical record. Coding Level of Care Code Est Pt Level 3 (11360) Complex EM visit Add On G2211 Diagnoses Left knee pain M25.562 Osteoarthritis of left knee M17.12
--- OUTSIDE RECORDS SUMMARY | 2025-03-28 15:00 | XMS_ITS | Clinical Summary ---
Author Organization [facility] [address] [facility] lding Address [address] [facility] [place] [phone] Phone Care Team Providers Care Consulting Sales Manager Name Role Phone Tawanna Cabrera MD Primary Care Prov ider Allergies Active Allergy Reactions Criticality Noted Date Comments Clindamycin Hcl Nausea And Vomiting 11/06/2011 Medications acetaminophen (TYLENOL) 500 mg tablet Take 1 Tablet by mouth every 6 hours as needed. Active brimonidine (ALPHAGAN) 0.2 % ophthalmic solution INSTILL 1 DROP INTO RIGHT EYE 3 TIMES A DAY 03/01/2024 Active fluticasone propion-salmete roL (ADVAIR DISKUS) 500-50 mcg/dose diskus inhaler Inhale 1 Puff into the lungs 2 times daily. 08/11/2023 Active gabapentin (NEURONTIN) 100 mg capsule Take 1 Capsule by mouth at bedtime. 02/28/2024 Active nystatin (MYCOSTATIN) 100,000 unit/mL suspension Take 4-6 mL by mouth 4 times daily for 10 days. Swish and swallow 03/04/2023 Active tiZANidine (ZANAFLEX) 2 mg tablet Take 1 tablet (2 mg total) by mouth every 8 (eight) hours if needed for muscle spasms. 30 tablet 5 12/22/2024 Active ibuprofen (ADVIL,MOTRIN) 800 mg tablet Take 1 tablet (800 mg total) by mouth every 8 (eight) hours if needed for moderate pain. for pain 90 tablet 1 12/22/2024 Active predniSONE (DELTASONE) 10 mg tablet Take 40 mg PO daily for 2 days, then take 30 mg PO daily for 2 days, then 20 mg PO daily for 2 days, then TAKE 10mg for 2 days and then stop 20 tablet 01/08/2025 Active albuterol HFA (PROAIR HFA ; PROVENTIL HFA ; VENTOLIN HFA) 90 mcg/actuation inhaler Inhale 2 puffs by mouth every 6 (six) hours if needed for wheezing. 25.5 g 02/21/2025 Active Active Problems Problem Noted Date Diagnosed Date Chronic low back pain without sciatica Hyperlipemia 08/14/2022 Overview (07/13/2024): ASCVD risk 5.2% [...] Encounters Date Type Department Care Team Description 01/08/2025 2:00 PM EDT Office Visit Adult Medicine [address] [phone] Nancy Murphy PA Moderate asthma, unspecified whether complicated, unspecified whether persistent (Primary Dx); Acute cough from Last 3 Months Immunizations Name Administration [...] HISTORICAL HERNIA REPAIR/ING OTHER SURGICAL HISTORY PROCEDURE: [place] OPTX FEM SHFT FX W/PLATE/SCREWS W/WO CERCLAGE; COMMENT: Dr Renteria ([facility]) Medical History Medical History Date Comments [...] Date Smoking Tobacco: Never Smokeless Tobacco: Never Tobacco Cessation:Counseling Given: No Alcohol Use Standard Drinks/Week Comments Yes 1.7 (1 standard drink = 0.6 oz p ure alcohol) Comments No Sex and Gender Information Value Date Recorded Sex Assigned at Not on file Legal Sex Female 6:50 AM EST Gender Identity Not on file Sexual Orientation Not on file Obstetrics History Last Filed Vital Signs Vital Sign Reading Time Taken Comments Blood Pressure 92/50 01/08/2025 1:59 PM EDT Pulse 71 01/08/2025 1:59 PM EDT Temperature 36.7 C (98.1 F) 01/08/2025 1:59 PM EDT Respiratory Rate - - Oxygen Saturation - - Inhaled Oxygen Concentration - - Weight 63 kg (139 lb) 01/08/2025 1:59 PM EDT Height 160 cm (5' 3 ) 12/22/2024 1:11 PM EDT Body Mass Index 24.62 12/22/2024 1:11 PM EDT Plan of Treatment Upcoming Encounters Date Type Department Care Team (Late st Contact Info) Description 06/25/2025 2:30 PM EDT Office Visit Adult Medicine - [facility] [address] [place] [phone] Tawanna Cabrera MD [address] [place] [address] Health Maintenance Due Date Last Done Comments [...] Procedure Name Priority Date/Time Associated Diagnosis Comments EXTERNAL VASCULAR ULTRASOUND 01/05/2025 EXTERNAL VASCULAR ULTRASOUND 01/05/2025 LIPID PANEL Routine 03/21/2024 DEPRESSION SCREENING Routine 02/28/2024 HEPATITIS C SCREENING Routine 03/16/2018 COLONOSCOPY Routine 03/16/2018 from Last 3 Months or Most Recently Relevant to Health Maintenance Results * External Vascular Ultrasound (01/05/2025) Only the most recent of2 resultswithin the time period is included. Anatomical Region Laterality Modality Ultrasound [facility] On[facility] CV VASCULAR PROCEDURES F inal Result * (ABNORMAL) Lipid panel (03/21/2024) Pathologist [facility] LDL/HDL Ratio 3 0 - 4 Triglycerides 73 0 - 150 mg/dL Cholesterol 231(A) 0 - 200 mg/dL HDL 72 >=40 mg/dL LDL Cholesterol 145(A) 0 - 100 mg/dL Blood Venous blood specimen / Unknown Result [facility] Provider LAB BLOOD ORDERABLES Dee l Result * Depression Screening (02/28/2024) Pathologist [facility] Depression Screening Abstracted [facility] Kiko [facility]TE[facility] Final Result * Hepatitis C Screening (03/16/2018) Pathologist [facility] Hepatitis C Screening Abstracted [facility] Provider HEALTH MAINTENANCE Final Result * Colonoscopy (03/16/2018) [facility] Colonoscopy Abstracted, No interpretation Anatomical Region Laterality Modality Other [facility] Provider HEALTH MAINTENANCE Final Result from Last 3 Months or Most Recently Relevant to Health Maintenance Insurance MEDICARE MEDICAID - [place] Care Teams Consulting Sales Manager Relationship Specialty Start Date End Date Tawanna Cabrera MD [address] [place] [address] [place] [id number] PCP - General Internal Medicine 08/09/20
--- OUTSIDE RECORDS SUMMARY | 2025-03-28 15:00 | XMS_ITS | Clinical Summary ---
Author Organization [facility] Address [address] [place] [address] Care Team Providers Care Curer Acid Drum Name Role Phone Tawanna Cabrera MD Primary Care Pr ovider Allergies Active Allergy Reactions Criticality Noted Date Comments Clindamycin Unknown/Patient and Family Unable to Define Medium 10/30/2020 Medications ibuprofen (MOTRIN) 800 mg tablet Take 800 [...] 6 hours) as needed for wheezing. Active fluticasone-minh meterol (Advair Diskus) 500-50 mcg/inh diskus inhaler Inhale 1 puff 2 (two) times a day. Active Social History Tobacco Use Types Packs/Day Years Used Date Smoking Tobacco: Never Smokeless Tobacco: Never Alcohol Use Standard Drinks/Week Comments Not Currently 0 (1 standard drink = 0.6 oz pur e alcohol) Comments Unknown Sex and Gender Information Value Date Recorded Sex Assigned at Not on file Legal Sex Female 1:25 PM EST Gender Identity Not on file Sexual Orientation Not on file Last Filed Vital Signs Vital Sign Reading Time Taken Comments Blood Pressure 132/80 11/04/2020 12:15 PM EST Pulse 80 11/04/2020 12:22 PM EST Temperature 35.6 C (96.1 F) 11/04/2020 12:07 PM EST Respiratory Rate 16 11/04/2020 12:22 PM EST [...] Density (Females,Ag es 65 and older) 2018 COVID-19 Vaccine ( - 2023-2 5 season) 2024 Influenza Vaccine 04/27/2025 RSV Vaccine 60 years and old er and Patients (1 - 1-dose 75+ series) 2028 Hepatitis B Vaccines Aged Out No long er eligible based on patient's age to complete this topic Insurance MEDICARE PART A & B [facility] Advance Directives * Full Code (Latest Code Status on File) Date Activated Date Inactivated Comments 11/04/2020 9:03 AM Care Teams Curer Acid Drum Relationship Specialty Start Date End Date Tawanna Cabrera MD PCP - General Internal Medicine 11/04/20
--- OUTSIDE RECORDS SUMMARY | 2025-03-28 15:00 | XMS_ITS | Clinical Summary ---
Author Organization [employer] Address [address] [facility] 7[address] [place] [address] Care Team Providers Care Manager Commercial Real Estate Name Role Phone Unavailable Primary Care Provider Unavailabl e Allergies Active Allergy Reactions Criticality Noted Date Comments Clindamycin Nausea And Vomiting,Unknown Medium 11/06/2011 Other Reaction(s): N&V Medications tiZANidine (Zanaflex) 2 MG tablet Take 2 mg by mouth every 8 (eight) hours if needed. 5 Active Albuterol Sulfate 108 (90 Base) MCG/ACT aerosol powder Inhale 1 puff every 6 (six) hours if needed. Active albuterol 108 (90 Base) MCG/ACT inhaler inhale 2 puffs by mouth every 6 hours as needed for wheeze Active brimonidine (AlphaGAN) 0.2 % ophthalmic solution INSTILL 1 DROP INTO RIGHT EYE 3 TIMES A DAY Active ibuprofen 800 MG tablet Take 1 tablet (800 mg) by mouth every 8 (eight) hours if needed for moderate pain. 30 tablet 5 Active amoxicillin-cla vulanate (Augmentin) 875-125 MG tablet Take 1 tablet by mouth 2 times daily for 10 days. 20 tablet 5 03/01/20 25 acetaminophen (Tylenol 8 Hour) 650 MG ER tablet Take 1 tablet (650 mg) by mouth every 8 (eight) hours if needed for mild pain for up to 10 days. Do not crush, chew, or split. 30 tablet 5 03/01/20 25 ibuprofen 800 MG tablet Take 1 tablet (800 mg) by mouth 3 times daily for 10 days. 30 tablet 5 03/01/20 25 acetaminophen (Tylenol 8 Hour) 650 MG ER tablet Take 1 tablet (650 mg) by mouth every 8 (eight) hours if needed for mild pain for up to 10 days. Do not crush, chew, or split. 30 tablet 5 03/08/20 25 amoxicillin-cla vulanate (Augmentin) 500-125 MG tablet Take 1 tablet (500 mg) by mouth 2 times daily for 7 days. 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 Carson . Awaiting report Actinic keratosis 12/20/2014 Overview (02/14/2025): Actinic keratosis 12/09 right cheek Varicose vein of leg 07/31/2009 Overview (02/14/2025): Dr. Alvarado. Rotator cuff injury 11/08/2008 Asthma 10/11/2008 Overview (02/14/2025): Since age 36. Encounters Date Type Department Care Team Description 03/16/2025 Telephone [facility] [address] [place] [phone] Vaibhav Caputo, BDS impressions/dentures 03/01/2025 1:30 PM EDT Office Visit [facility] [address] [place] [phone] Laura Caputopramarion, BDS 02/26/2025 2:00 PM EDT Office Visit [facility] [address] [place] [phone] Vaibhav Caputo, BDS 02/20/2025 9:45 AM EDT Office Visit [facility] [address] [place] [phone] Vaibhav Caputo, BDS 02/15/2025 9:45 AM EDT Office Visit [facility] [address] [place] [phone] ChiVaibhav del rio, BDS 02/14/2025 2:00 PM EDT Office Visit [facility] [address] [place] [phone] ChiVaibhav del rio, BDS Dental abscess (Primary Dx); Dental caries 01/30/2025 Telephone [facility] [address] [place] [address] ChiVaibhav del rio, BDS 01/23/2025 4:00 PM EDT Office Visit [facility] [address] [place] [phone] Sophie Casas from Last 3 Months Social History Tobacco Use Types Packs/Day Years Used Date Smoking Tobacco: Never Smokeless Tobacco: Never Tobacco Cessation:Counseling Given: Not Answered Comments Unknown Sex and Gender Information Value Date Recorded Sex Assigned at Female 12/18/2024 3:19 PM EDT Legal Sex Female 3:16 PM EDT Gender Identity Female 12/18/2024 3:19 PM EDT Sexual Orientation Choose not to disclose 2024 3:19 PM EDT Last Filed Vital Signs Vital Sign Reading Time Taken Comments Blood Pressure 130/70 02/14/2025 3:35 PM EDT Pulse - - Temperature - - Respiratory Rate - - Oxygen Saturation - - Inhaled Oxygen Concentration - - Weight - - Height - - Body Mass Index - - Plan of Treatment Upcoming Encounters Date Type Department Care Team (Late st Contact Info) Description 05/14/2025 2:00 PM EDT Office Visit [facility] [address] [place] [phone] RyVaibhav sawant, BDS [address] [place] [phone] Health Maintenance Due Date Last Done Comments CT Colonography 1953 Colonoscopy 1953 Colorectal Cancer Screening 1953 Dental Prophylaxis 1953 Depression Screening 1953 FIT DNA/Cologuard 1953 FIT 1953 FOBT 1953 SDOH Screening 1953 Sigmoidoscopy 1953 Alcohol/Substance Use Screening 1965 Hepatitis C Screening 1971 Mammogram 1993 Zoster Vaccines (1 of 2) 2003 RSV Patients and Patients Aged 60 years or older (1 - Risk 60-74 years 1-dose series) 2013 DTaP/Tdap/Td Vaccines (2 - T d or Tdap) 02/28/2023 02/28/2013, 10/07/2006 COVID-19 Vaccine (2023-2 5 season) 2024 Influenza Vaccine (Season Ended) 2025 Dental Oral Exam 07/26/2025 01/23/2025 Dental X-Ray: Bitewings 01/24/2026 01/23/2025 Tobacco Screening 03/01/2026 03/01/2025 Dental X-Ray: Full Mouth 01/25/2028 01/23/2025 Pneumococcal Vaccine: 50+ Years Completed 08/14/2022, 07/29/2020 [...] patient's age to complete this topic Meningococcal Vaccine Aged Out No sonal natasha eligible based on patient's age to complete this topic RSV under 20 months Aged Out No longe r eligible based on patient's age to complete this topic Rotavirus Vaccines Aged Out No longer eligible based on patient's age to complete this topic Procedures Procedure Name Priority Date/Time Associated Diagnosis Comments CASE PRESENTATION, DETAILED AND EXTENSIVE TREATMENT PLANNING Routine 03/01/2025 1:30 PM EDT RE-EVAL - POST-OP OFFICE VISIT Routine 03/01/2025 1:30 PM EDT UR ALVEOLOPLASTY IN CONJ W/ EXTRACTIONS - 1-3 TEETH, PER QUAD Routine 02/26/2025 2:00 PM EDT CASE PRESENTATION, DETAILED AND EXTENSIVE TREATMENT PLANNING Routine 02/26/2025 2:00 PM EDT 10 EXTRACTION, ERUPTED TOOTH OR EXPOSED ROOT (ELEVATION/FORCEPS REMOVAL) Routine 02/26/2025 2:00 PM EDT 9 EXTRACTION, ERUPTED TOOTH OR EXPOSED ROOT (ELEVATION/FORCEPS REMOVAL) Routine 02/26/2025 2:00 PM EDT 8 EXTRACTION, ERUPTED TOOTH OR EXPOSED ROOT (ELEVATION/FORCEPS REMOVAL) Routine 02/26/2025 2:00 PM EDT 7 EXTRACTION, ERUPTED TOOTH OR EXPOSED ROOT (ELEVATION/FORCEPS REMOVAL) Routine 02/26/2025 2:00 PM EDT 6 EXTRACTION, ERUPTED TOOTH OR EXPOSED ROOT (ELEVATION/FORCEPS REMOVAL) Routine 02/26/2025 2:00 PM EDT CASE PRESENTATION, DETAILED AND EXTENSIVE TREATMENT PLANNING Routine 02/20/2025 9:45 AM EDT RE-EVAL - POST-OP OFFICE VISIT Routine 02/20/2025 9:45 AM EDT CASE PRESENTATION, DETAILED AND EXTENSIVE TREATMENT PLANNING Routine 02/15/2025 9:45 AM EDT RE-EVAL - POST-OP OFFICE VISIT Routine 02/15/2025 9:45 AM EDT 3 EXTRACTION, ERUPTED TOOTH REQ REMOVAL OF BONE AND/OR SECTIONING OF TOOTH Routine 02/14/2025 2:00 PM EDT 2 EXTRACTION, ERUPTED TOOTH REQ REMOVAL OF BONE AND/OR SECTIONING OF TOOTH Routine 02/14/2025 2:00 PM EDT 1 EXTRACTION, ERUPTED TOOTH REQ REMOVAL OF BONE AND/OR SECTIONING OF TOOTH Routine 02/14/2025 2:00 PM EDT LR ALVEOLOPLASTY IN CONJ W/ EXTRACTIONS - 4+ TEETH, PER QUAD Routine 02/14/2025 2:00 PM EDT 5 EXTRACTION, ERUPTED TOOTH OR EXPOSED ROOT (ELEVATION/FORCEPS REMOVAL) Routine 02/14/2025 2:00 PM EDT COMPREHENSIVE ORAL EVALUATION - NEW OR ESTABLISHED PATIENT Routine 01/23/2025 4:00 PM EDT INTRAORAL - COMPLETE SERIES OF RADIOGRAPHIC IMAGES Routine 01/23/2025 4:00 PM EDT CASE PRESENTATION, DETAILED AND EXTENSIVE TREATMENT PLANNING Routine 01/23/2025 4:00 PM EDT 12 EXTRACTION Routine 01/23/2025 12:00 AM EDT 19 ROOT CANAL Routine 01/23/2025 12:00 AM EDT 19 [employer] [employer] Routine 01/23/2025 12:00 AM EDT 29 DO COMPOSITE FILLING Routine 01/24/20 12:00 AM EDT 17 O AMALGAM FILLING Routine 01/23/2025 12:00 AM EDT 3 MODB(V) AMALGAM FILLING Routine 2024 12:00 AM EDT 2 MOD AMALGAM FILLING Routine 01/23/2025 12:00 AM EDT 1 MO AMALGAM FILLING Routine 01/23/2025 12:00 AM EDT 5 EXTRACTION Routine 01/23/2025 12:00 AM EDT 16 EXTRACTION Routine 01/23/2025 12:00 AM EDT 15 EXTRACTION Routine 01/23/2025 12:00 AM EDT 14 EXTRACTION Routine 01/23/2025 12:00 AM EDT 11 EXTRACTION Routine 01/23/2025 12:00 AM EDT 32 EXTRACTION Routine 01/23/2025 12:00 AM EDT 31 EXTRACTION Routine 01/23/2025 12:00 AM EDT 30 EXTRACTION Routine 01/23/2025 12:00 AM EDT 28 EXTRACTION Routine 01/23/2025 12:00 AM EDT 20 EXTRACTION Routine 01/23/2025 12:00 AM EDT 21 EXTRACTION Routine 01/23/2025 12:00 AM EDT 18 EXTRACTION Routine 01/23/2025 12:00 AM EDT from Last 3 Months Insurance DENTAL - [facility] FULL (MEDICAID)
== END 2025-03-28 14:57 | disposition home or self-care (01) ==
LOC: HO.HOS 14:28
PROVIDERS: PCP Internal Medicine; Visit Provider Orthopaedic Surgery
DX: M25.562 Pain in left knee (principal); M17.12 Unilateral primary osteoarthritis, left knee
CPT/HCPCS: 99213; G2211

== ENCOUNTER → 2025-03-28 14:28 | Outpatient (BNVA) | payer MEDICARE, OTHER, SELFPAY | PROVIDERS: PCP Internal Medicine; Visit Provider Orthopaedic Surgery | DX: M17.12 Unilateral primary osteoarthritis, left knee (principal) | CPT/HCPCS: 99212 ==

== ENCOUNTER 2025-04-16 07:19 | Outpatient (REF) | payer MEDICARE, SELFPAY ==
--- NOTE | ~2025-04-16 | XR_ITS ---
CLINICAL HISTORY: M25.511 - Pain in right shoulder 2 view right shoulder Comparison: None provided Findings: Bones intact. No dislocations. Periarticular osteophyte formation at the acromioclavicular and glenohumeral joints, indicating osteoarthritis. No erosions. No radiopaque foreign body. IMPRESSION: 1. No acute findings This document has been electronically signed by: Zoë Stout MD on 04/17/2025 14:50:56
--- OUTSIDE RECORDS SUMMARY | 2025-04-16 07:22 | XMS_ITS | Clinical Summary ---
Author Organization [employer] Address [address] [facility] [address] [place] [address] Care Team Providers Care Wholesale Buyer Name Role Phone Unavailable Primary Care Provider Unavailabl e Allergies Active Allergy Reactions Criticality Noted Date Comments Clindamycin Nausea And Vomiting,Unknown Medium 11/06/2011 Other Reaction(s): N&V Medications tiZANidine (Zanaflex) 2 MG tablet Take 2 mg by mouth every 8 (eight) hours if needed. 12/22/2024 Active Albuterol Sulfate 108 (90 Base) MCG/ACT [...] if needed for moderate pain. 30 tablet 02/26/2025 Active Active Problems Problem Noted Date Diagnosed Date Chronic low back pain without sciatica Hyperlipemia 08/14/2022 Overview (02/14/2025): ASCVD risk 5.2% [...] Type Department Care Team Description 03/16/2025 Telephone [facility] [address] [place] [phone] Makonahally, Deviprasad, BDS impressions/dentures 03/01/2025 1:30 PM EDT Office Visit [facility] [address] [place] [phone] Makonahally, Deviprasad, BDS 02/26/2025 2:00 PM EDT Office Visit [facility] [address] [place] [phone] Makonahally, Deviprasad, BDS 02/20/2025 9:45 AM EDT Office Visit [facility] [address] [place] [phone] Makonahally, Deviprasad, BDS 02/15/2025 9:45 AM EDT Office Visit [facility] [address] [place] [phone] Makonahally, Deviprasad, BDS 02/14/2025 2:00 PM EDT Office Visit [facility] [address] [place] [address] [phone] Makonahally, Deviprasad, BDS Dental abscess (Primary Dx); Dental caries 01/30/2025 Telephone [facility] [address] [place] [address] Makonahally, Deviprasad, BDS 01/23/2025 4:00 PM EDT Office Visit [facility] [address] [place] [address] [phone] Sophie Casas from Last 3 Months Social [...] Description 05/14/2025 2:00 PM EDT Office Visit [facility] [address] [place] [address] Vaibhav Caputo, BDS [address] [place], [place] [phone] Health Maintenance Due Date Last Done Comments [...] or Tdap) 02/28/2023 02/28/2013, 10/07/2006 COVID-19 Vaccine (1 - 2023-2 5 season) 2024 Influenza Vaccine (#1) 2025 Dental Oral Exam 07/26/2025 01/23/2025 Dental [...]
--- OUTSIDE RECORDS SUMMARY | 2025-04-16 07:22 | XMS_ITS | Clinical Summary ---
Author Organization [facility] [address] [facility] l[facility] Address [address] [facility] [place] [phone] Phone Care Team Providers Care Corporation Lawyer Name Role Phone Tawanna Cabrera MD Primary [...] Encounters Date Type Department Care Team Description 04/13/2025 Telephone Adult Medicine - [place] [address] [place] [phone] Tawanna Cabrera MD Shoulder Injury from Last 3 Months Immunizations Name Administration [...] HISTORICAL HERNIA REPAIR/ING OTHER SURGICAL HISTORY PROCEDURE: AL OPTX FEM SHFT FX W/PLATE/SCREWS W/WO CERCLAGE; COMMENT: Dr Renteria ([facility]) Medical History Medical History Date Comments [...] 2:30 PM EDT Office Visit Adult Medicine [address] [phone] Tawanna Cabrera MD [facility] [place] [address] Health Maintenance Due Date Last Done Comments Breast Cancer Screening 1953 COVID-19 Vaccine (#1) 1958 Zoster Vaccines (1 of 2) 1972 RSV Immunization Adult Patients (1 - Risk 60-74 years 1-dose series) 2013 Falls Risk Assessment 09/03/2022 Osteoporosis Screening (Bone Density Screening) 09/03/2022 Social Influencers of Health Screening 09/03/2022 DTaP,Tdap,and Td Vaccines (3 - Td or Tdap) 02/28/2023 02/28/2013, 10/07/2006 Depression Screening 09/27/2024 02/28/2024 Medicare Annual Wellness Visit 02/27/2025 02/28/2024 Influenza Vaccine (#1) 2025 Colorectal Cancer Screening: Colonoscopy 03/16/2028 03/16/2018 [...] Results * (ABNORMAL) Lipid panel (03/21/2024) Pathologist [facility] LDL/HDL Ratio 3 0 - 4 Triglycerides 73 0 - 150 mg/dL Cholesterol 231(A) 0 - 200 mg/dL HDL 72 >=40 mg/dL LDL Cholesterol 145(A) 0 - 100 mg/dL Blood Venous blood specimen / Unknown [facility] Provider LAB BLOOD ORDERABLES Dee l Result * Depression Screening (02/28/2024) Pathologist [facility] Depression Screening Abstracted [facility] Provider HEALTH MAINTENANCE Final Result * Hepatitis C Screening (03/16/2018) Pathologist [facility] Hepatitis C Screening Abstracted [facility] Provider HEALTH MAINTENANCE Final Result * Colonoscopy (03/16/2018) Pathologist [facility] Colonoscopy Abstracted, No interpretation Anatomical Region Laterality Modality Other [facility] Provider HEALTH MAINTENANCE Final Result from Last 3 Months or Most Recently Relevant to Health Maintenance Insurance MEDICARE MEDICAID - [place] Care Teams Corporation Lawyer Relationship Specialty Start Date End Date Tawanna Cabrera MD [address] [place] [phone] PCP - General Internal Medicine 08/09/20
--- OUTSIDE RECORDS SUMMARY | 2025-04-16 07:22 | XMS_ITS | Clinical Summary ---
Author Organization [facility] Address [address] [place] [address] Care Team Providers Care Tripper Name Role Phone Tawanna Carbera MD Primary Care Pr ovider Allergies Active [...] topic Insurance MEDICARE PART A & B [facility] Advance Directives * Full Code (Latest Code Status on File) Date Activated Date Inactivated Comments 11/04/2020 9:03 AM Care Teams Tripper Relationship Specialty Start Date End Date Tawanna Cabrera MD PCP - General Internal Medicine 11/04/20
== END 2025-04-16 07:20 | disposition home or self-care (01) ==
LOC: HO.HOSX 07:19
PROVIDERS: Visit Provider Orthopaedic Surgery
DX: M25.311 Other instability, right shoulder (principal); M25.511 Pain in right shoulder; M75.41 Impingement syndrome of right shoulder; M19.011 Primary osteoarthritis, right shoulder; R53.1 Weakness; Z79.1 Long term (current) use of non-steroidal anti-inflammatories (NSAID); Z79.891 Long term (current) use of opiate analgesic; Z79.899 Other long term (current) drug therapy; Z79.51 Long term (current) use of inhaled steroids
CPT/HCPCS: 73030; 99212

== ENCOUNTER 2025-04-16 09:36 | Outpatient (AMB) | payer MEDICARE, SELFPAY ==
--- NOTE | 2025-04-16 09:49 | A.OFFVIS_ITS ---
Vital Signs 04/16/25 09:52 Height 5 ft 3 in Weight 138 lb BMI 24.4 Intake Visit Reasons: Right shoulder pain and weakness Intake Note: Abby is a 69 year old right hand dominant female who presents with complaints of progressively worsening right shoulder pain and weakness. The patient did undergo left shoulder surgery approximately 15 years ago. She reports minimal discomfort in her left shoulder. She states that her right shoulder pain has gotten worse over the last few years in spite of continued non operative treatments. She most recently aggravated her right shoulder when she tripped over her cat and fell onto her right side. Since that time she has had difficulty lifting her right hand above shoulder height. She has failed physical therapy exercises, Tylenol and anti-inflammatory medicines. She has also tried oxycodone which gives her minimal relief. The patient reports difficulty lifting her right hand above shoulder height. Allergies gabapentin Allergy (Unknown, Verified 04/16/25 09:50) Unknown Clindamycin HCl Allergy (Unknown, Uncoded 03/28/25 14:34) Rash Medication List - Last Reviewed 04/16/25 by Shea Bridges albuterol sulfate 90 mcg/actuation inhalation brimonidine 0.2% drps ophthalmic (eye) ibuprofen mg PO neomycin-polymyxin B-dexameth 3.5mg/mL-10,000 unit/mL-0.1 % drps ophthalmic (eye) oxycodone 5 mg PO Q24H PRN oxycodone 5 mg PO Q24H PRN tizanidine 2 mg PO TID PFSH Surgical History Hx of lumbosacral spine surgery History of hip surgery History of shoulder surgery History of hernia repair History of eye surgery Physical Exam Vital Signs: BMI result Body Mass Index 24.4 Const Other: Well-nourished well-developed very friendly female awake alert and oriented x3 in no acute distress Extrem Other: Bilateral upper extremity examination shows good capillary refill, no skin les ions noted, normal sensation light touch Right shoulder examination shows decreased active range of motion when compared to her left shoulder, 4/5 strength with supraspinatus testing, positive impinge ment signs, no instability Results Reviewed Results Reviewed: X-rays of the patient's right shoulder show severe acromioclavicular joint narrowing, a type 3 acromion, no acute bony abnormalities Assessment & Plan Assessment & Plan (1) Rotator cuff insufficiency of right shoulder: Code(s): M25.311 - Other instability, right shoulder Category: Medical Plan Ms. Bright presents with right shoulder pain and weakness due to impingement syndrome, acromioclavicular joint arthritis and most likely a full-thickness rotator cuff tear. Thus, I will send the patient for an MRI of her right shoulder for further evaluation. I will see her back once the MRI is completed to discuss the findings and treatment options. Feel free to call me at any time should questions regarding her orthopedic management arise. I spent 20 minutes in reviewing the patient's records and imaging studies, seeing the patient and documenting in the medical record. Orders: Orders XR shoulder RT min 2V Today M25.511 - Pain in right shoulder MR shoulder RT wo con 04/17/25 M25.311 - Other instability, right shoulder Medications: New lorazepam (Ativan) Take one tab 2 hours before your MRI; take the second tab 30 minutes before your MRI 1 mg PO ONCE 2 tabs 0RF anxiety Coding Level of Care Code Est Pt Level 3 (24113) Complex EM visit Add On G2211 Diagnoses Rotator cuff insufficiency of right shoulder M25.311
[2025-04-16 09:52] VITALS: BMI 24.4
== END 2025-04-16 10:02 | disposition home or self-care (01) ==
LOC: HO.HOS 09:36
PROVIDERS: PCP Internal Medicine; Visit Provider Orthopaedic Surgery
DX: M25.311 Other instability, right shoulder (principal)
CPT/HCPCS: 99213; G2211

== ENCOUNTER → 2025-04-16 09:40 | Outpatient (BNV) | payer MEDICARE, SELFPAY | PROVIDERS: Visit Provider Radiology Diagnostic Radiology | DX: M25.511 Pain in right shoulder (principal) | CPT/HCPCS: 73030 ==

== ENCOUNTER 2025-04-26 14:11 | Outpatient (AMB) | payer MEDICARE, SELFPAY ==
--- NOTE | 2025-04-26 14:16 | MHC.OFFVIS ---
Intake Visit Reasons: Inj-Left knee Gel-One Inj Intake Note: Abby is a 69 year old female who presents with complaints of left knee pain. She describes her pain as sharp in nature. Her pain has gotten worse over the last few years in spite of continued non operative treatments. She has had cortisone injections which gave her minimal relief. She wishes to hold off on total knee replacement surgery for now. She has failed the last 3 months of conservative treatment. She has tried Tylenol and anti-inflammatory medicines as well as a home exercise program which gave her minimal relief. Allergies gabapentin Allergy (Unknown, Verified 04/26/25 14:22) Unknown Clindamycin HCl Allergy (Unknown, Uncoded 04/26/25 14:22) Rash Medication List - Last Reconciled 04/26/25 by Tawanna Zimmerman RN albuterol sulfate 90 mcg/actuation inhalation brimonidine 0.2% drps ophthalmic (eye) ibuprofen mg PO lorazepam (Ativan) 1 mg PO ONCE neomycin-polymyxin B-dexameth 3.5mg/mL-10,000 unit/mL-0.1 % drps ophthalmic (eye) oxycodone 5 mg PO Q24H PRN oxycodone 5 mg PO Q24H PRN tizanidine 2 mg PO TID PFSH Surgical History Hx of lumbosacral spine surgery History of hip surgery History of shoulder surgery History of hernia repair History of eye surgery Physical Exam Const Other: Well-nourished well-developed very friendly female awake alert and oriented x3 in no acute distress Extrem Other: Bilateral lower extremity examination shows good capillary refill, no skin lesions noted, normal sensation light touch Left knee examination shows a minimal effusion, palpable crepitus with range of motion, pain with range of motion, no instability Office Procedures AMB Joint Injection/Aspiration Joint Injection/Aspiration Primary Site: left knee Prep: site was prepped using aseptic technique Injected: 40 mg of, DepoMedrol and 1% plain lidocaine Procedure: The patient tolerated the procedure well Coding 21290 - Large joint Procedure code (CPT) selection complete Results Reviewed Results Reviewed: X-rays of the patient's left knee taken previously show joint space narrowing, subchondral sclerosis, no acute bony abnormalities Assessment & Plan Assessment & Plan (1) Osteoarthritis of left knee: Code(s): M17.12 - Unilateral primary osteoarthritis, left knee Category: Medical Plan Ms. Bright presents with left knee pain due to degenerative joint disease. The risks and benefits of a Gel-One viscosupplementation injection were discussed at length with the patient. The patient wished to proceed. She tolerated the injection well. She will continue with her activity modifications. She will contact me prior to her follow-up appointment in 3 months should any questions or concerns arise. If she fails continued non operative treatments we will further discuss the risks and benefits of left total knee replacement surgery. Feel free to call me at any time should questions regarding her orthopedic management arise. I spent 22 minutes in reviewing the patient's records and imaging studies, seeing the patient and documenting in the medical record. Orders: Orders AMB Joint Injection/Aspiration 04/26/25 M17.12 - Unilateral primary osteoarthritis, left knee Coding Level of Care Code Est Pt Level 3 (72586) Complex EM visit Add On G2211 Diagnoses Osteoarthritis of left knee M17.12 CPT Codes Coding - 49773 Large joint: 71992 - Large joint ([id number])
--- OUTSIDE RECORDS SUMMARY | 2025-04-26 14:26 | XMS_ITS ---
Author Name [facility] Organization Unknown Care Team Organization Name Specialty Phone Email Start Date End Da te [facility] ELENI YOO Primary Care 08/04/2022 05/15/2024
--- OUTSIDE RECORDS SUMMARY | 2025-04-26 14:26 | XMS_ITS | Clinical Summary ---
Author Organization [facility] Address [address] [place] [address] Care Team Providers Care Petroleum Laboratory Technician Name Role Phone Tawanna Cabrera MD [...] Insurance MEDICARE PART A & B [facility] Advance Directives * Full Code (Latest Code Status on File) Date Activated Date Inactivated Comments 11/04/2020 9:03 AM Care Teams Petroleum Laboratory Technician Relationship Specialty Start Date End Date Tawanna Cabrera MD PCP - General Internal Medicine 11/04/20
--- OUTSIDE RECORDS SUMMARY | 2025-04-26 14:26 | XMS_ITS | Clinical Summary ---
Author Organization [facility] [address] [facility] lding Address [address] [facility] [place] [address] Phone Care Team Providers Care Boat Hop Name Role Phone Tawanna Cabrera MD Primary Care Prov ider Allergies Active Allergy Reactions Criticality Noted Date Comments Clindamycin Hcl Nausea And Vomiting 11/06/2011 Medications acetaminophen (TYLENOL) 500 mg tablet Take 1 Tablet by mouth every 6 hours as needed. Active brimonidine (ALPHAGAN) 0.2 % ophthalmic solution INSTILL 1 DROP INTO RIGHT EYE 3 TIMES A DAY 4 Active fluticasone propion-salmet Eloina (ADVAIR DISKUS) 500-50 mcg/dose diskus inhaler Inhale 1 Puff into the lungs 2 times daily. 3 Active gabapentin (NEURONTIN) 100 mg capsule Take 1 Capsule by mouth at bedtime. 4 Active nystatin (MYCOSTATIN) 100,000 unit/mL suspension Take 4-6 mL by mouth 4 times daily for 10 days. Swish and swallow 3 Active tiZANidine (ZANAFLEX) 2 mg tablet Take 1 tablet (2 mg total) by mouth every 8 (eight) hours if needed for muscle spasms. 30 tablet 5 5 Active ibuprofen (ADVIL,MOTRIN) 800 mg tablet Take 1 tablet (800 mg total) by mouth every 8 (eight) hours if needed for moderate pain. for pain 90 tablet 1 5 Active predniSONE (DELTASONE) 10 mg tablet Take 40 mg PO daily for 2 days, then take 30 mg PO daily for 2 days, then 20 mg PO daily for 2 days, then TAKE 10mg for 2 days and then stop 20 tablet 5 Active albuterol HFA (PROAIR HFA ; PROVENTIL HFA ; VENTOLIN HFA) 90 mcg/actuation inhaler INHALE 2 PUFFS BY MOUTH EVERY 6 HOURS NEEDED FOR WHEEZE 25.5 each 5 Active albuterol HFA (PROAIR HFA ; PROVENTIL HFA ; VENTOLIN HFA) 90 mcg/actuation inhaler Inhale 2 puffs by mouth every 6 (six) hours if needed for wheezing. 25.5 g 5 025 Discontinued Active Problems Problem Noted Date Diagnosed Date [...] Care Team Description 04/13/2025 Telephone Adult Medicine [address] [phone] Tawanna Cabrera MD Shoulder Injury from [...] HISTORICAL HERNIA REPAIR/ING OTHER SURGICAL HISTORY PROCEDURE: [place] OPTX FEM SHFT FX W/PLATE/SCREWS W/WO CERCLAGE; COMMENT: Dr Renteria ([facility]) Medical History Medical History Date [...] PM EDT Office Visit Adult Medicine - [place] [address] [place] [phone] Tawanna Cabrera MD [address] [place] [address] Health Maintenance Due Date Last Done Comments [...] Results * (ABNORMAL) Lipid panel (03/21/2024) Pathologist [facility] LDL/HDL Ratio 3 0 - 4 Triglycerides 73 0 - 150 mg/dL Cholesterol 231(A) 0 - 200 mg/dL HDL 72 >=40 mg/dL LDL Cholesterol 145(A) 0 - 100 mg/dL Blood Venous blood specimen / Unknown [facility] Provider LAB BLOOD ORDERABLES Dee l Result * Depression Screening (02/28/2024) Pathologist [facility] Depression Screening Abstracted [facility] Provider HEALTH MAINTENANCE Final Result * Hepatitis C Screening (03/16/2018) Pathologist [facility] Hepatitis C Screening Abstracted [facility] Provider HEALTH MAINTENANCE Final Result * Colonoscopy (03/16/2018) Pathologist [facility] Colonoscopy Abstracted, No interpretation Anatomical Region Laterality Modality Other [facility] Provider HEALTH MAINTENANCE Final Result from Last 3 Months or Most Recently Relevant to Health Maintenance Insurance MEDICARE MEDICAID - [place] Care Teams Boat Hop Relationship Specialty Start Date End Date Tawanna Cabrera MD [address] [place] [phone] PCP - General Internal Medicine 08/09/20
--- OUTSIDE RECORDS SUMMARY | 2025-04-26 14:26 | XMS_ITS | Clinical Summary ---
Author Organization [employer] Address [address] [place] [address] Care Team Providers Care Dye Weigher Helper Name Role Phone Unavailable Primary Care Provider [...] Type Department Care Team Description 03/16/2025 Telephone [facility] [address] [place] [phone] Makonahally, Deviprasad, BDS impressions/dentures 03/01/2025 1:30 PM EDT Office Visit [facility] [address] [place] [phone] Makonahally, Deviprasad, BDS 02/26/2025 2:00 PM EDT Office Visit [facility] [address] [place] [address] Makonahally, Deviprasad, BDS 02/20/2025 9:45 AM EDT Office Visit [facility] [address] [place] [phone] Makonahally, Deviprasad, BDS 02/15/2025 9:45 AM EDT Office Visit [facility] [address] [place] [address] Makonahally, Deviprasad, BDS 02/14/2025 2:00 PM EDT Office Visit [facility] [address] [place] [address] Makonahally, Deviprasad, BDS Dental abscess (Primary Dx); Dental caries 01/30/2025 Telephone [facility] [address] [place] [address] Makonahally, Deviprasad, BDS from Last 3 Months Social History Tobacco [...] Upcoming Encounters Date Type Department Care Team (John cee Contact Info) Description 05/14/2025 2:00 PM EDT Office Visit [facility] [address] [place] [phone] Vaibhav Caputo, BDS [address] [place] [address] Health Maintenance Due Date Last Done Comments [...] or Tdap) 02/28/2023 02/28/2013, 10/07/2006 COVID-19 Vaccine ( - 2023-2 5 season) [...] (ELEVATION/FORCEPS REMOVAL) Routine 02/14/2025 2:00 PM EDT INTRAORAL - COMPLETE SERIES OF RADIOGRAPHIC IMAGES Routine 01/23/2025 4:00 PM EDT COMPREHENSIVE ORAL EVALUATION - NEW OR ESTABLISHED PATIENT Routine 01/23/2025 4:00 PM EDT from Last 3 Months or Most Recently Relevant to Health Maintenance Insurance DENTAL - HSN FULL (MEDICAID)
== END 2025-04-26 14:48 | disposition home or self-care (01) ==
LOC: HO.HOS 14:12
PROVIDERS: PCP Internal Medicine; Visit Provider Orthopaedic Surgery
DX: M17.12 Unilateral primary osteoarthritis, left knee (principal)
CPT/HCPCS: 20610; 99213

== ENCOUNTER → 2025-04-26 14:11 | Outpatient (BNVA) | payer MEDICARE, SELFPAY | PROVIDERS: PCP Internal Medicine; Visit Provider Orthopaedic Surgery | DX: M17.12 Unilateral primary osteoarthritis, left knee (principal) | CPT/HCPCS: 20610; 99212; J2003; J7326 ==

== ENCOUNTER 2025-06-05 13:00 | Outpatient (AMB) | payer OTHER, SELFPAY ==
--- NOTE | 2025-06-05 13:04 | MHC.OFFVIS ---
Intake Visit Reasons: OV - Right shoulder MRI review Intake Note: Abby is a 70 year old right hand dominant female who presents with complaints of progressively worsening right shoulder pain and weakness. The patient did undergo left shoulder surgery approximately 15 years ago. She reports minimal discomfort in her left shoulder. She states that her right shoulder pain has gotten worse over the last few years in spite of continued non operative treatments. She most recently aggravated her right shoulder when she tripped over her cat and fell onto her right side. Since that time she has had difficulty lifting her right hand above shoulder height. She has failed physical therapy exercises, Tylenol and anti-inflammatory medicines. She has also tried oxycodone which gives her minimal relief. The patient reports difficulty lifting her right hand above shoulder height. Allergies gabapentin Allergy (Unknown, Verified 06/05/25 13:05) Unknown Clindamycin HCl Allergy (Unknown, Uncoded 04/26/25 14:22) Rash Medication List - Last Reconciled 06/05/25 by Jose Carlos Watson MD albuterol sulfate 90 mcg/actuation inhalation brimonidine 0.2% drps ophthalmic (eye) ibuprofen mg PO lorazepam (Ativan) 1 mg PO ONCE neomycin-polymyxin B-dexameth 3.5mg/mL-10,000 unit/mL-0.1 % drps ophthalmic (eye) oxycodone 5 mg PO Q24H PRN oxycodone 5 mg PO Q24H PRN tizanidine 2 mg PO TID PFSH Surgical History Hx of lumbosacral spine surgery History of hip surgery History of shoulder surgery History of hernia repair History of eye surgery Physical Exam Extrem Other: Right shoulder examination shows decreased active range of motion but full passive range of motion when compared to her left shoulder, 3/5 strength with supraspinatus testing, positive impingement signs, no instability Results Reviewed Results Reviewed: MRI of the patient's right shoulder shows tearing of the supraspinatus and infraspinatus tendons with retraction retirement to the glenoid lip Assessment & Plan Assessment & Plan (1) Rotator cuff insufficiency of right shoulder: Code(s): M25.311 - Other instability, right shoulder Category: Medical Plan Ms. Bright presents with right shoulder pain and weakness due to a large rotator cuff tear. I had a lengthy discussion with the patient regarding the treatment options. At this point I am not sure that her rotator cuff tear is reparable. The patient may require reverse total shoulder replacement surgery. Thus, I will have her evaluated by my partner, Dr. Navarro, for further information regarding her treatment options. She will continue with her [id number] exercises in the meantime. Feel free to call me at any time should questions regarding her orthopedic management arise. I spent 20 minutes in reviewing the patient's records and imaging studies, seeing the patient and documenting in the medical record. Medications: Refilled oxycodone Partial Fill upon patient request. 5 mg PO Q24H PRN 20 tabs 0RF pain Coding Level of Care Code Est Pt Level 3 (62226) Complex EM visit Add On G2211 Diagnoses Rotator cuff insufficiency of right shoulder M25.311
--- OUTSIDE RECORDS SUMMARY | 2025-06-05 15:16 | XMS_ITS | Clinical Summary ---
Author Organization [facility] Address [address] [place] [address] Care Team Providers Care Research Development Director Name Role Phone Tawanna Cabrera MD Primary [...] Health Maintenance Due Date Last Done Comments Advance Care Planning 1955 Hepatitis C Virus Screening 1955 DTaP/Tdap/Td Vaccines (1 - Tdap) 1972 Mammogram 1993 Colonoscopy 1998 Pneumococcal Vaccines 50+ (1 of 1 - PCV) 2003 Zoster (Shingles) Vaccine (1 of 2) 2003 DXA Bone Density (Females,Ag es 65 and older) 2018 COVID-19 Vaccine (2023-2 5 season) 2024 Influenza Vaccine 04/27/2025 RSV Vaccine 60 years and old er and Patients (1 - 1-dose 75+ series) 2028 Hepatitis B Vaccines Aged Out No long er eligible based on patient's age to complete this topic Insurance MEDICARE PART A & B [facility] Advance Directives * Full Code (Latest Code Status on File) Date Activated Date Inactivated Comments 11/04/2020 9:03 AM Care Teams Research Development Director Relationship Specialty Start Date End Date Tawanna Cabrera MD PCP - General Internal Medicine 11/04/20
--- OUTSIDE RECORDS SUMMARY | 2025-06-05 15:16 | XMS_ITS | Encounter Summary ---
Author Organization [facility] Address [address] [place] [address] Care Team Providers Care Hand Hardener Name Role Phone Tawanna Cabrera MD Primary Care Pr ovider Encounter Details Date Type Department Care Team (Late st Contact Info) Description 10/30/2020 Prep for Surgery [facility] Felix Monroe MD [address] [place] [address] Social History Tobacco Use Types Packs/Day Years Used Date Smoking Tobacco: Never Assessed Comments Unknown Sex and Gender Information Value [...] on filedocumented in this encounter Care Teams Hand Hardener Relationship Specialty Start Date End Date Tawanna Cabrera MD PCP - General Internal Medicine 11/04/20 documented as of this encounter
--- OUTSIDE RECORDS SUMMARY | 2025-06-05 15:16 | XMS_ITS | Encounter Summary ---
Author Organization [employer] Address [address] [place] [address] 7 [place] [address] Care Team Providers Care Director Clinical Pharmacology Name Role Phone Unavailable Primary Care Provider Unavailabl e Reason for Visit * Reason Onset Date Comments cancelled appt by office 05/17/2025 Encounter Details Date Type Department Care Team (Late st Contact Info) Description 05/17/2025 Telephone [facility] [address] [place], [place] [phone] Vaibhav Caputo BDS [address] [place], [place] [phone] cancelled appt by office Social History Tobacco Use Types Packs/Day Years Used Date Smoking Tobacco: Never Smokeless Tobacco: Never Comments Unknown Sex and Gender Information Value Date Recorded Sex Assigned at Female 12/18/2024 3:19 PM EDT Legal Sex Female 3:16 PM EDT Gender Identity Female 12/18/2024 3:19 PM EDT Sexual Orientation Choose not to disclose 2024 3:19 PM EDT documented as of this encounter Miscellaneous Notes * Telephone Encounter - Iva Judge - 05/17/2025 2:09 PM EDT Patient called in upset due to appt today and prior appt cancelled by office. She states that she has planned her day around her appts and last minute the appts are cancelled and she wants to hear back from office DR documented in this encounter Plan of Treatment Not on file documented as of this encounter Visit Diagnoses Not on filedocumented in this encounter
--- OUTSIDE RECORDS SUMMARY | 2025-06-05 15:16 | XMS_ITS | Clinical Summary ---
Author Organization [employer] Address [address] [facility] 7t [place] [address] Care Team Providers Care Pbx Inspector Name Role Phone Unavailable Primary Care Provider [...] for moderate pain. 30 tablet 02/26/2025 Active Fluticasone-Cem meterol 500-50 MCG/ACT aerosol powder Inhale 1 puff 2 times daily. Active oxyCODONE (Roxicodone) 5 MG immediate release tablet TAKE 1 TABLET BY MOUTH EVERY 24 HOURS NEEDED FOR PAIN 04/13/2025 Active Active Problems Problem Noted Date Diagnosed [...] Encounters Date Type Department Care Team Description 05/29/2025 3:00 PM EDT Office Visit [facility] [address] [place] [phone] Makonahally, Deviprasad, BDS 05/17/2025 Telephone [facility] [address] [place] [address] Makonahally, Deviprasad, BDS cancelled appt by office 05/11/2025 Telephone [facility] [address] [place] [phone] Makonahally, Deviprasad, BDS 03/16/2025 Telephone [facility] [address] [place] [phone] Makonahally, Deviprasad, BDS impressions/dentures from Last 3 Months Social History Tobacco [...] Sign Reading Time Taken Comments Blood Pressure 120/70 05/29/2025 3:36 PM EDT Pulse - - Temperature - - Respiratory Rate - - Oxygen Saturation - - Inhaled Oxygen Concentration - - Weight - - Height - - Body Mass Index - - Plan of Treatment Health Maintenance Due Date [...] 02/28/2013, 10/07/2006 COVID-19 Vaccine (2023-2 5 season) 2025 Influenza Vaccine (#1) 2025 Dental Oral Exam 07/26/2025 01/23/2025 Dental X-Ray: Bitewings 01/24/2026 01/23/2025 Tobacco Screening 05/29/2026 05/29/2025 Dental X-Ray: Full Mouth 01/25/2028 01/23/2025 Pneumococcal [...] PRESENTATION, DETAILED AND EXTENSIVE TREATMENT PLANNING Routine 05/29/2025 3:00 PM EDT DENTURE IMPRESSION Routine 05/29/2025 3: 00 PM EDT INTRAORAL - COMPLETE SERIES OF RADIOGRAPHIC IMAGES Routine 01/23/2025 4:00 PM EDT COMPREHENSIVE ORAL EVALUATION - NEW OR ESTABLISHED PATIENT Routine 01/23/2025 4:00 PM EDT from Last 3 Months or Most Recently Relevant to Health Maintenance Insurance DENTAL - HSN FULL (MEDICAID)
--- OUTSIDE RECORDS SUMMARY | 2025-06-05 15:16 | XMS_ITS | Clinical Summary ---
Author Organization [facility] [address] [facility] l[address] Address [address] [facility] [place] [address] Phone Care Team Providers Care Refund Specialist Name Role Phone Tawanna Cabrera MD Primary [...] 6 HOURS NEEDED FOR WHEEZE 25.5 each 04/23/2025 Active Active Problems Problem Noted Date Diagnosed [...] Encounters Date Type Department Care Team Description 05/21/2025 Telephone [facility] [address] [facility] [place] [address] Astrid Dan [place] 04/13/2025 Telephone Adult Medicine - [place] [address] [place] [address] Tawanna Cabrera MD from Last 3 Months Immunizations Name Administration [...] HISTORICAL HERNIA REPAIR/ING OTHER SURGICAL HISTORY PROCEDURE: [place] OPTX FEM SHFT FX W/PLATE/SCREWS W/WO CERCLAGE; COMMENT: Dr Renteria ([facility]) Medical History Medical History Date Comments Asthma [...] PM EDT Office Visit Adult Medicine - [place] [address] [place] [phone] Tawanna Cabrera MD [address] [place] [address] Health Maintenance Due Date Last Done Comments [...] mg/dL Blood Venous blood specimen / Unknown [facility] Provider LAB BLOOD ORDERABLES Dee l Result * Depression Screening (02/28/2024) Depression Screening Abstracted [facility] Provider HEALTH MAINTENANCE Final Result * Hepatitis C Screening (03/16/2018) Hepatitis C Screening Abstracted [facility] Provider HEALTH MAINTENANCE Final Result * Colonoscopy (03/16/2018) Colonoscopy Abstracted, No interpretation Anatomical Region Laterality Modality Other [facility] Provider HEALTH MAINTENANCE Final Result from Last 3 Months or Most Recently Relevant to Health Maintenance Insurance MEDICARE [place]ICAID - [place] Care Teams Refund Specialist Relationship Specialty Start Date End Date Tawanna Cabrera MD [address] [place] [phone] PCP - General Internal Medicine 08/09/20
== END 2025-06-05 13:24 | disposition home or self-care (01) ==
LOC: HO.HOS 13:00
PROVIDERS: PCP Internal Medicine; Visit Provider Orthopaedic Surgery
DX: M25.311 Other instability, right shoulder (principal)
CPT/HCPCS: 99213; G2211

== ENCOUNTER 2025-09-12 07:49 | Outpatient (AMB) | payer OTHER, MEDICAID, SELFPAY ==
--- NOTE | 2025-09-12 07:50 | A.OFFVIS_ITS ---
Vital Signs 09/12/25 07:55 Height 5 ft 3 in Weight 138 lb BMI 24.4 Intake Visit Reasons: Left knee pain, Right knee pain Intake Note: Abby is a 70 year old female who presents with complaints of progressively worsening bilateral knee pains, left greater than right. She describes her left knee pain as sharp and severe in nature. Her pain has gotten worse over the la st few years in spite of continued non operative treatments. She has had multiple injections given into her left knee. The most recent injection gave her no relief. She has also tried Tylenol, anti-inflammatory medicines, physical therapy exercises and a home exercise program which gave her minimal relief. At this point her left knee pain is interfering with her activities of daily living and her ability to sleep well through the night. The patient has difficulty walking even short distances because of her pain. Allergies gabapentin Allergy (Unknown, Verified 09/12/25 07:56) Unknown Clindamycin HCl Allergy (Unknown, Uncoded 09/12/25 07:56) Rash Medication List - Last Reconciled 09/12/25 by Jose Carlos Watson MD albuterol sulfate 90 mcg/actuation inhalation brimonidine 0.2% drps ophthalmic (eye) ibuprofen mg PO lorazepam (Ativan) 1 mg PO ONCE neomycin-polymyxin B-dexameth 3.5mg/mL-10,000 unit/mL-0.1 % drps ophthalmic (eye) oxycodone 5 mg PO Q24H PRN oxycodone 5 mg PO Q24H PRN tizanidine 2 mg PO TID PFSH Surgical History Hx of lumbosacral spine surgery History of hip surgery History of shoulder surgery History of hernia repair History of eye surgery Physical Exam Vital Signs: BMI result Body Mass Index 24.4 Extrem Other: Bilateral knee examination shows minimal effusions, palpable crepitus with range of motion, pain with range of motion, range of motion from -3 degrees to 115 degrees Results Reviewed Results Reviewed: X-rays of the patient's right knee taken today show moderate to severe joint space narrowing, subchondral sclerosis, no acute bony abnormalities X-rays of the patient's left knee taken today show end-stage degenerative joint disease with grade 4 [id number] arthritis, subchondral sclerosis, osteophyte formation, no acute bony abnormalities Assessment & Plan Assessment & Plan (1) Left knee pain: Code(s): M25.562 - Pain in left knee Category: Medical (2) Right knee pain: Code(s): M25.561 - Pain in right knee Category: Medical (3) Osteoarthritis of left knee: Code(s): M17.12 - Unilateral primary osteoarthritis, left knee Category: Medical Plan Ms. Bright presents with bilateral knee pains, left greater than right, due to end-stage degenerative joint disease. I had a lengthy discussion with the patient regarding the treatment options. At this point she has failed continued non operative treatments. The risks and benefits of left total knee replacement surgery were discussed at length with the patient. The patient wishes to proceed with surgery. She will be scheduled for next available date. I will see her back prior to her surgery to answer any final questions that she might have. Feel free to call me at any time should questions regarding her orthopedic management arise. I spent 22 minutes in reviewing the patient's records and imaging studies, seeing the patient and documenting in the medical record. Orders: Orders XR Knee David 3V Today M25.561 - Pain in right knee, M25.562 - Pain in left knee Coding Level of Care Code Est Pt Level 3 (99063) Add On Problem Visit Only Diagnoses Left knee pain M25.562 Right knee pain M25.561 Osteoarthritis of left knee M17.12
--- OUTSIDE RECORDS SUMMARY | 2025-09-12 07:52 | XMS_ITS | Encounter Summary ---
Author Organization [facility] Address [address] [place] [address] Care Team Providers Care Oral Surgery Physician Name Role Phone Tawanna Cabrera MD Primary Care Pr ovider Encounter Details Date Type Department Care Team (Late st Contact Info) Description 10/30/2020 Prep for Surgery [facility] Felix Monroe MD [address] [place] [address] Social History Tobacco Use Types Packs/Day Years [...] on filedocumented in this encounter Care Teams Oral Surgery Physician Relationship Specialty Start Date End Date Tawanna Cabrera MD PCP - General Internal Medicine 11/04/20 documented as of this encounter
--- OUTSIDE RECORDS SUMMARY | 2025-09-12 07:52 | XMS_ITS | Clinical Summary ---
Author Organization [employer] Address 75 [facility] 7t [place] [address] Care Team Providers Care Music Typographer Name Role Phone Unavailable Primary Care Provider [...] 12/28/2018 Cystitis, interstitial 09/01/2018 Hematuria 03/17/2018 Overview (02/14/2025): Cystoscopy with Dr. Carson . Awaiting report Actinic keratosis 12/20/2014 Overview (02/14/2025): Actinic keratosis 12/09 right cheek Varicose vein of leg 07/31/2009 Overview (02/14/2025): Dr. Alvarado. Rotator cuff injury 11/08/2008 Asthma 10/11/2008 Overview (02/14/2025): Since age 36. Encounters Date Type Department Care Team Description 08/10/2025 1:30 PM EST Office Visit [facility] ADULT DENTAL [address] [place] [phone] Lloyd Roth DMD 08/03/2025 2:00 PM EST Office Visit [facility] ADULT DENTAL [address] [place] [address] Lloyd Roth DMD 08/03/2025 Telephone [facility] ADULT DENTAL [address] [place] [phone] Yen appt irate patient 07/24/2025 2:30 PM EDT Office Visit [facility] DENTAL [address] [place] [address] Lloyd Roth DMD 07/10/2025 3:30 PM EDT Office Visit [address] [address] Lloyd Roth DMD 07/03/2025 3:00 PM EDT Office Visit [facility] DENTAL [address] [place] [address] Lloyd Roth DMD from Last 3 Months Social History Tobacco [...] Encounters Date Type Department Care Team (John st Contact Info) Description 10/09/2025 1:30 PM EST Office Visit [facility] ADULT DENTAL [address] [facility], [place] [phone] Carrion[employer] Health Maintenance Due Date Last Done Comments CT Colonography 1953 Colonoscopy 1953 Colorectal Cancer Screening 1953 Dental Prophylaxis 1953 Depression Screening 1953 FIT DNA/Cologuard 1953 FIT 1953 FOBT 1953 SDOH Screening 1953 Sigmoidoscopy 1953 Alcohol/Substance Use Screening 1965 Hepatitis C Screening 1971 Mammogram 1993 RSV Patients and Patients Aged 60 years or older (1 - Risk 50-74 years 1-dose series) 2003 Zoster Vaccines (1 of 2) 2003 DTaP/Tdap/Td Vaccines (2 - T d or Tdap) 02/28/2023 02/28/2013, 10/07/2006 COVID-19 Vaccine (1 - 2024-2 6 season) 2025 Influenza Vaccine (#1) 2025 Dental Oral Exam 07/26/2025 01/23/2025 Dental X-Ray: Bitewings 01/24/2026 01/23/2025 Tobacco Screening 08/10/2026 08/10/2025 Dental X-Ray: Full Mouth 01/25/2028 01/23/2025 Pneumococcal [...] PRESENTATION, DETAILED AND EXTENSIVE TREATMENT PLANNING Routine 08/10/2025 1:30 PM EST 30,31,28,20,21 MANDIBULAR PARTIAL DENTURE - RESIN BASE (INCLUDING, RETENTIVE/CLASPING MATERIALS, RESTS, AND TEETH) Routine 08/10/2025 1:30 PM EST Max COMPLETE DENTURE - MAXILLARY Routine 08/10/2025 1:30 PM EST WAX TRY IN Routine 08/03/2025 2:00 PM EST BITE REGISTRATION Routine 08/03/2025 2:0 0 PM EST WAX TRY IN Routine 07/24/2025 2:30 PM EDT WAX TRY IN Routine 07/10/2025 3:30 PM EDT BITE REGISTRATION Routine 07/03/2025 3:0 0 PM EDT INTRAORAL - COMPLETE SERIES OF RADIOGRAPHIC IMAGES Routine 01/23/2025 4:00 PM EDT COMPREHENSIVE ORAL EVALUATION - NEW OR ESTABLISHED PATIENT Routine 01/23/2025 4:00 PM EDT from Last 3 Months or Most Recently [id number] DENTAL - HSN FULL (MEDICAID)
--- OUTSIDE RECORDS SUMMARY | 2025-09-12 07:52 | XMS_ITS | Encounter Summary ---
Author Organization [employer] Address 75 [facility] 7 [place] [address] Care Team Providers Care Analysis Engineer Name Role Phone Unavailable Primary Care Provider Unavailabl e Reason for Visit * Reason Onset Date Comments cancelled appt by office 05/17/2025 Encounter Details Date Type Department Care Team (Late st Contact Info) Description 05/17/[address] [facility] DENTAL [address] [place], [place] [phone] Vaibhav Caputo BDS [address] [place], [place] [phone] cancelled appt by office Social History Tobacco [...] documented in this encounter Plan of Treatment Upcoming Encounters Date Type Department Care Team (Late st Contact Info) Description 10/09/2025 1:30 PM EST Office Visit [facility] ADULT DENTAL [address] [place], [place] [phone] Aurea Carrion documented as of this encounter Visit Diagnoses Not on filedocumented in this encounter
--- OUTSIDE RECORDS SUMMARY | 2025-09-12 07:52 | XMS_ITS | Clinical Summary ---
Author Organization [facility] [address] [facility] lding Address 230 [facility] [place] [address] Phone Care Team Providers Care Advertising Manager Name Role Phone Tawanna Cabrera MD Primary Care Prov ider Allergies Active Allergy Reactions Criticality Noted Date Comments Brimonidine Dry Eye 06/25/2025 Clindamycin Hcl Nausea And Vomiting 11/06/2011 Medications acetaminophen (TYLENOL) 500 mg tablet Take 1 Tablet by mouth every 6 hours as needed. Active brimonidine (ALPHAGAN) 0.2 % ophthalmic solution INSTILL 1 DROP INTO RIGHT EYE 3 TIMES A DAY 4 Active fluticasone propion-salmet Eloina (ADVAIR DISKUS) 500-50 mcg/dose diskus inhaler Inhale 1 Puff into the lungs 2 times daily. 3 Active nystatin (MYCOSTATIN) 100,000 unit/mL suspension Take 4-6 mL by mouth 4 times daily for 10 days. Swish and swallow 3 Active ibuprofen (ADVIL,MOTRIN) 800 mg tablet Take 1 tablet (800 mg total) by mouth every 8 (eight) hours if needed for moderate pain. for pain 90 tablet 1 5 Active albuterol HFA (PROAIR HFA ; PROVENTIL HFA ; VENTOLIN HFA) 90 mcg/actuation inhaler INHALE 2 PUFFS BY MOUTH EVERY 6 HOURS NEEDED FOR WHEEZE 25.5 each 2 5 Active predniSONE (DELTASONE) 10 mg tablet Take 40 mg PO daily for 2 days, then take 30 mg PO daily for 2 days, then 20 mg PO daily for 2 days, then TAKE 10mg for 2 days and then stop 20 tablet 5 Active tiZANidine (ZANAFLEX) 2 mg tablet TAKE 1 TABLET (2 MG TOTAL) BY MOUTH EVERY 8 (EIGHT) HOURS IF NEEDED FOR MUSCLE SPASMS. 90 tablet 1 5 Active tiZANidine (ZANAFLEX) 2 mg tablet Take 1 tablet (2 mg total) by mouth every 8 (eight) hours if needed for muscle spasms. 30 tablet 5 5 025 Discontinued Active Problems Problem Noted [...] (07/13/2024): Dr. Alvarado. Rotator cuff injury 11/08/2008 Assessment & Plan (06/25/2025 5:03 PM EDT): Asthma 10/11/2008 Overview (07/13/2024): Since age 36. 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 (Primary Dx); Bilateral chronic knee pain; Glaucoma, unspecified glaucoma type, unspecified laterality; Rotator cuff injury, unspecified laterality, subsequent encounter; Moderate asthma, unspecified whether complicated, unspecified whether persistent; Medicare annual wellness visit, subsequent from Last 3 Months Immunizations Immunization Administration Dates Next Due Pneumococcal conjugate 13 [...] FX W/PLATE/SCREWS W/WO CERCLAGE; COMMENT: Dr Renteria ([facility]) Medical History Medical History Date Comments [...] Sign Reading Time Taken Comments Blood Pressure 108/65 06/25/2025 2:33 PM EDT Pulse 81 06/25/2025 2:33 PM EDT Temperature 36.4 C (97.5 F) 06/25/2025 2:33 PM EDT Respiratory Rate - - Oxygen Saturation - - Inhaled Oxygen Concentration - - Weight 60.3 kg (133 lb) 06/25/2025 2:33 PM EDT Height 160 cm (5' 3 ) 12/22/2024 1:11 PM EDT Body Mass Index 23.56 12/22/2024 1:11 PM EDT Plan of Treatment Upcoming Encounters Date Type Department Care Team (Late st Contact Info) Description 12/25/2025 8:30 AM EDT Office Visit Adult Medicine - [place] [address] [place] [phone] Tawanna Cabrera MD [address] [place] [address] Health Maintenance Due Date Last Done Comments Breast Cancer Screening 1953 COVID-19 Vaccine (#1) 1958 Zoster Vaccines (1 of 2) 1972 RSV Immunization Adult Patients (1 - Risk 50-74 years 1-dose series) 2003 Falls Risk Assessment 09/03/2022 Osteoporosis Screening (Bone [...] Maintenance Results * (ABNORMAL) Lipid panel (03/21/2024) [facility] LDL/HDL Ratio 3 0 - 4 Triglycerides 73 0 - 150 mg/dL Cholesterol 231(A) 0 - 200 mg/dL HDL 72 >=40 mg/dL LDL Cholesterol 145(A) 0 - 100 mg/dL Blood Venous blood specimen / Unknown Historical Provider LAB BLOOD ORDERABLES Dee l Result * Depression Screening (02/28/2024) Pathologist [facility] Depression Screening Abstracted Historical Provider HEALTH MAINTENANCE Final Result * Hepatitis C Screening (03/16/2018) Pathologist [facility] Hepatitis C Screening Abstracted Historical Provider HEALTH MAINTENANCE Final Result * Colonoscopy (03/16/2018) [facility] Colonoscopy Abstracted, No interpretation Anatomical Region Laterality Modality Other us Historical Provider HEALTH MAINTENANCE Final Result from Last 3 Months or Most Recently Relevant to Health Maintenance Insurance MEDICARE MEDICAID - [place] Advance Directives * Full Code - Confirmed (Latest Code Status on File) Date Activated Date Inactivated Comments 07/23/2025 11:[address] atus was ascertained in the following way: Code status discussion: discussion with patient To update the patient's code status, place a code status order. Do not modify or discontinue any currently active code status orders. Care Teams Advertising Manager Relationship Specialty Start Date End Date Tawanna Cabrera MD [address] [place] [address] [place] [address] PCP - General Internal Medicine 08/09/20
--- OUTSIDE RECORDS SUMMARY | 2025-09-12 07:52 | XMS_ITS | Encounter Summary ---
Author Organization [employer] Address 75 [facility] 7 [place] [address] Care Team Providers Care Video Game Designer Name Role Phone Unavailable Primary Care Provider Unavailabl e Reason for Visit * Reason Onset Date Comments Dr. Roth appt irate patient 08/03/2025 Encounter Details Date Type Department Care Team (Late st Contact Info) Description 08/03/2025 Telephone C ADULT DENTAL [address] [place], [place] [phone] Lloyd Roth, DMD [address] [place], [place] [phone] Dr. Roth appt irate patient Social History Tobacco Use Types Packs/Day Years [...] * Telephone Encounter - Iva Judge - 08/03/2025 12:40 PM EST Message for Dr. Roth Patient called in upset because she called in to confirm her appt for today ad the appointment was not scheduled. I did contact [place] however she sttes that due to it being a double book it was to bescheduled on provider DA side. Patient states she was told by provider that appointment would be double booked at 3:30pm today and she intends to still come in for the visit. Please reach out to patient to resolve. documented in this encounter Plan of Treatment Upcoming Encounters Date Type Department Care Team (Late st Contact Info) Description 10/09/2025 1:30 PM EST Office Visit [facility] ADULT DENTAL [address] [place] [address] Aurea Carrion documented as of this encounter Visit Diagnoses Not on filedocumented in this encounter
--- OUTSIDE RECORDS SUMMARY | 2025-09-12 07:52 | XMS_ITS | Clinical Summary ---
Author Organization [facility] Address [address] [place] [address] Care Team Providers Care Train Control Technician Name Role Phone Tawanna Cabrera MD [...] es 65 and older) 2018 Influenza Vaccine 04/27/2025 COVID-19 Vaccine (1 - 2024-2 6 season) 2025 RSV Vaccine 50 years and old er and Patients (1 - 1-dose 75+ series) 2028 Hepatitis B Vaccines Aged Out No long er eligible based on patient's age to complete this topic Insurance MEDICARE PART A & B [facility] Advance Directives * Full Code (Latest Code Status on File) Date Activated Date Inactivated Comments 11/04/2020 9:03 AM Care Teams Train Control Technician Relationship Specialty Start Date End Date Tawanna Cabrera MD PCP - General Internal Medicine 11/04/20
[2025-09-12 07:55] VITALS: BMI 24.4
== END 2025-09-12 08:14 | disposition home or self-care (01) ==
LOC: HO.HOS 07:50
PROVIDERS: PCP Internal Medicine; Visit Provider Orthopaedic Surgery
DX: M25.562 Pain in left knee (principal); M25.561 Pain in right knee; M17.12 Unilateral primary osteoarthritis, left knee
CPT/HCPCS: 99213; G2211

== ENCOUNTER → 2025-09-12 07:51 | Outpatient (BNV) | payer OTHER, MEDICAID, SELFPAY | PROVIDERS: Visit Provider Radiology Diagnostic Ultrasound | DX: M17.0 Bilateral primary osteoarthritis of knee (principal) | CPT/HCPCS: 73562 ==

== ENCOUNTER 2025-09-12 12:06 | Outpatient (REF) | payer OTHER, MEDICAID, SELFPAY ==
--- NOTE | ~2025-09-12 | XR_ITS ---
EXAMINATION: X-ray bilateral knees CLINICAL INFORMATION: Bilateral knee pain COMPARISON: X-ray 04/11/2024 TECHNIQUE: Right knee 3 views. Left knee 3 views. FINDINGS: Right knee: Severe medial compartment arthritis. Moderate lateral and patellofemoral arthritis. No visible acute fracture or dislocation. There is chondrocalcinosis/loose bodies present. No significant effusion. Left knee: Severe medial compartment arthritis. Degenerative valgus. Moderate lateral and patellofemoral arthritis. No visible acute fracture, dislocation or suspicious bony lesions. There is chondrocalcinosis/loose bodies. Small effusion. XR/XR Knee David 3V IMPRESSION: Right knee: Osteoarthritis as above. Chondrocalcinosis/loose bodies. No acute findings. Left knee: Osteoarthritis as above. No acute fracture. Small effusion. Electronically signed by: Carliot Zepeda MD 09/12/2025 01:46 PM EST
--- OUTSIDE RECORDS SUMMARY | 2025-09-13 15:57 | XMS_ITS | Encounter Summary ---
Author Organization [facility] [place] [address] Care Team Providers Care Paperboard Box Maker Name Role Phone Tawanna Cabrera MD Primary Care Prov ider Reason for Visit * Reason Onset Date Comments Shoulder Pain 09/13/2025 Encounter Details Date Type Department Care Team (Late st Contact Info) Description 09/13/2025 Telephone Adult Medicine - [place] [address] [place] [phone] Tawanna Cabrera MD [address] [place] [phone] Social History Tobacco Use Types Packs/Day Years Used Date Smoking Tobacco: Never Smokeless Tobacco: Never Alcohol Use Standard Drinks/Week Comments Yes 1.7 (1 standard drink = 0.6 oz p ure alcohol) Comments No Sex and Gender Information Value Date Recorded Sex Assigned at Not on file Legal Sex Female 6:50 AM EST Gender Identity Not on file Sexual Orientation Not on file documented as of this encounter Progress Notes * Charlie Gururustam - 09/13/2025 3:50 PM EST Patient call requires triage: Symptoms patient is presenting: Pt c/o severe shoulder pain, states if she sleeps for three hours anight she's kenneth. Pt was given oxycodone by orthopedics for the pain but they won't prescribe anything till after her shoulder surgery. How long has patient had these symptoms?: For ALL patients calling to schedule any appointment (routine, sick visit, follow up, consult, etc.) in the outpatient setting please ask the following questions: Do you have fever of higher than 101, sore throat with difficulty swallowing or severe shortness ofbreath? If YES to any of these above symptoms, send a message to triage and do not book. Red dot. If no, an audio or video visit should be booked. Have you had close contact with someone with Coronavirus in the last 14 days? Have you traveled abroad? Have you traveled recently to another state outside of [place], [place], [place], [place], [place], [place], [place]? o If yes, did you quarantine for 14 days or have a negative covid test? If yes to any of the above, patient is not to be scheduled in office until after 14 day quarantine or negative covid test. If pain or injury related was it due to an accident at work or from a motor vehicle accident? If yes, date of accident/Injury: If yes, gather 3rd democrat insurance information Third Green Party Information: PCP: Tawanna Cabrera MD Payor: MEDICARE / Plan: MEDICARE PART A & B / Product Type: Medicare / documented in this encounter Plan of Treatment Upcoming Encounters Date Type Department Care Team (Late st Contact Info) Description 12/25/2025 8:30 AM EDT Office Visit Adult Medicine - [place] [address] [place] [phone] Tawanna Cabrera MD 230 [place], [place] documented as of this encounter Visit Diagnoses Not on filedocumented in this encounter Care Teams Paperboard Box Maker Relationship Specialty Start Date End Date Tawanna Cabrera MD [address] [place], [place] PCP - General Internal Medicine 08/09/20 documented as of this encounter
--- OUTSIDE RECORDS SUMMARY | 2025-09-13 15:57 | XMS_ITS | Encounter Summary ---
Author Organization [facility] Address [address] [place] [address] Care Team Providers Care Financial Examiner Name Role Phone Tawanna Cabrera MD Primary Care Pr ovider Encounter Details Date Type Department Care Team (Late st Contact Info) Description 10/30/2020 Prep for Surgery [facility] ADMINISTRATION Felix Monroe MD [address] [place] [address] Social History Tobacco Use Types Packs/Day Years [...] on filedocumented in this encounter Care Teams Financial Examiner Relationship Specialty Start Date End Date Tawanna Cabrera MD PCP - General Internal Medicine 11/04/20 documented as of this encounter
--- OUTSIDE RECORDS SUMMARY | 2025-09-13 15:58 | XMS_ITS | Clinical Summary ---
Author Organization [employer] Address [address] [facility] 7t [place] [address] Care Team Providers Care Caustic Strength Inspector Name Role Phone Unavailable Primary Care [...] Description 08/10/2025 1:30 PM EST Office Visit [facility] ADULT DENTAL [address] [place] [address] Lloyd Roth DMD 08/03/2025 2:00 PM EST Office Visit [facility] ADULT DENTAL [address] [place] [address] Lloyd Roth DMD 08/03/[address] [facility] ADULT DENTAL [address] [place] [address] [phone] Yen appt irate patient 07/24/2025 2:30 PM EDT Office Visit [facility] DENTAL [address] [place] [address] Llyod Roth DMD 07/10/2025 3:30 PM EDT Office Visit [address] [address] Lloyd Roth DMD 07/03/2025 3:00 PM EDT Office Visit [facility] DENTAL [address] [place] [address] Lloyd Roth DMD from Last 3 Months [...] [facility] ADULT DENTAL [address] [facility], [place] [phone] CarrionAurea Health Maintenance Due Date Last Done [...] Most Recently Relevant [place] [id number] DENTAL - HSN FULL (MEDICAID)
--- OUTSIDE RECORDS SUMMARY | 2025-09-13 15:58 | XMS_ITS | Encounter Summary ---
Author Organization [employer] Address 75 [facility] 7 [place] [address] Care Team Providers Care Elevator Constructor Name Role Phone Unavailable Primary Care Provider Unavailabl e Reason for Visit * Reason Onset Date Comments Dr. Roth appt irate patient 08/03/2025 Encounter Details Date Type Department Care Team (Late st Contact Info) Description 08/03/2025 Telephone C ADULT DENTAL [address] [place], [place] [phone] Lloyd Roth, DMD [address] [place], [place] [phone] Dr. Roth appt irate patient Social History [...] Description 10/09/2025 1:30 PM EST Office Visit [facility] ADULT DENTAL [address] [place] [address] Aurea Carrion documented as of this encounter Visit Diagnoses Not on filedocumented in this encounter
--- OUTSIDE RECORDS SUMMARY | 2025-09-13 15:58 | XMS_ITS | Clinical Summary ---
Author Organization [facility] Address [address] [place] [address] Care Team Providers Care Front End Technician Name Role Phone Tawanna Cabrera MD [...] topic Insurance MEDICARE PART A & B [facility] Advance Directives * Full Code (Latest Code Status on File) Date Activated Date Inactivated Comments 11/04/2020 9:03 AM Care Teams Front End Technician Relationship Specialty Start Date End Date Tawanna Cabrera MD PCP - General Internal Medicine 11/04/20
--- OUTSIDE RECORDS SUMMARY | 2025-09-13 15:58 | XMS_ITS | Clinical Summary ---
Author Organization [facility] [address] [facility] lding Address 230 [facility] [place] [address] Phone Care Team Providers Care Animal Nutrition Consultant Name Role Phone Tawanna Cabrera MD Primary [...] Encounters Date Type Department Care Team Description 09/13/2025 Telephone Adult Medicine - [address] [phone] Tawanna Garcai MD 06/25/2025 2:30 PM EDT Office Visit Adult Medicine - [address] [phone] Tawanna Garcia MD Secondary osteoarthritis of both [...] HISTORICAL HERNIA REPAIR/ING OTHER SURGICAL HISTORY PROCEDURE: PA OPTX FEM SHFT FX W/PLATE/SCREWS W/WO CERCLAGE; COMMENT: Dr Renteria ([facility]) Medical History Medical History Date Comments [...] AM EDT Office Visit Adult Medicine - [place] [address] [place] [phone] Tawanna Cabrera MD [address] [place] [address] Health Maintenance Due Date Last Done Comments [...] Maintenance Results * (ABNORMAL) Lipid panel (03/21/2024) [facility] LDL/HDL Ratio 3 0 - 4 Triglycerides 73 0 - 150 mg/dL Cholesterol 231(A) 0 - 200 mg/dL HDL 72 >=40 mg/dL LDL Cholesterol 145(A) 0 - 100 mg/dL Blood Venous blood specimen / Unknown Historical Provider LAB BLOOD ORDERABLES Dee l Result * Depression Screening (02/28/2024) [facility] Depression Screening Abstracted Historical Provider HEALTH MAINTENANCE Final Result * Hepatitis C Screening (03/16/2018) [facility] Hepatitis C Screening Abstracted Historical Provider HEALTH MAINTENANCE Final Result * Colonoscopy (03/16/2018) Colonoscopy Abstracted, No interpretation Anatomical Region Laterality Modality Other Historical Provider HEALTH MAINTENANCE Final Result from [...] currently active code status orders. Care Teams Animal Nutrition Consultant Relationship Specialty Start Date End Date Tawanna Cabrera MD [address] [place] [address] PCP - General Internal Medicine 08/09/20
--- OUTSIDE RECORDS SUMMARY | 2025-09-13 15:58 | XMS_ITS | Encounter Summary ---
Author Organization [employer] Address 75 [facility] 7 [place] [address] Care Team Providers Care Automation Qa Analyst Name Role Phone Unavailable Primary Care Provider Unavailabl e Reason for Visit * Reason Onset Date Comments cancelled appt by office 05/17/2025 Encounter Details Date Type Department Care Team (Late st Contact Info) Description 05/17/2025 Telephone [facility] D[facility] [address] [place], [place] [phone] Vaibhav Caputo BDS [address] [place], [place] [phone] cancelled appt by office Social History Tobacco [...] Description 10/09/2025 1:30 PM EST Office Visit [facility] ADULT DENTAL [address] [place], [place] [phone] Aurea Carrion documented as of this encounter Visit Diagnoses Not on filedocumented in this encounter
== END 2025-09-12 12:07 | disposition home or self-care (01) ==
LOC: HO.HOSX 12:06
PROVIDERS: Visit Provider Orthopaedic Surgery
DX: M17.12 Unilateral primary osteoarthritis, left knee (principal); M25.561 Pain in right knee
CPT/HCPCS: 73562